=== PATIENT | female | born 1965 | race Caucasian/White ===

== ENCOUNTER 2019-06-17 16:33 | Emergency (ER) | payer MEDICAID, SELFPAY ==
[2019-06-17 16:34] VITALS: BP 159/99; PULSE 85; RESP 20; TEMP 36.8; O2SAT 95; BMI 36.8
--- NOTE | 2019-06-17 16:59 | ED.DCSUM_ITS ---
History of Present Illness Chief Complaint: Shortness of Breath Informant: Patient, Significant Other Onset: Weeks - 1 Context: Onset with activity - exertion Timing: Intermittent Quality: wheezing and chest tightness Location: chest Current Severity: Gone Maximum Severity: Mild Worsened by: - - Exertion, coughing Relieved by: - - Albuterol, rest Associated Symptoms: Nasal Congestion - and rhinorrhea, Headache, Shortness of Breath, Chest Pain - only tight when wheezing, Nonproductive cough. Negative for: Sinus Pressure, Nausea, Vomiting, Diarrhea, Hemoptysis Narrative: Patient states she feels like she has had a cold for the past week. [facility], as she has had some dyspnea on exertion for the past 3 or 4 days that resolves with a short period of rest, they took her vital signs and told her that her oxygen levels were low and she needed to come to the hospital for breathing treatment. According to the documentation that she was given a discharge her pulse ox was 94% on room air, she states she does not feel short of breath right now, she used her albuterol inhaler just before going to [facility] which has been helping her dyspnea. She has been having some chest tightness when she is dyspneic and wheezing, they resolved together with rest and the symptoms are mild. She denies any diaphoresis, radiation to her arms or jaw, near syncope or syncope, or palpitations. No swelling in her legs or orthopnea. She is a smoker and has been told she has borderline COPD. She has had no fevers. - Past Medical History (1) COPD (chronic obstructive pulmonary disease) Status: Chronic Past Medical History - Allergies and Home Meds Allergies/Adverse Reactions: Allergies No Known Allergies Allergy (Verified 06/17/19 16:34) Primary Care Physician: Tonny De La Cruz MD [Primary Care Provider] - Lives: Spouse/ Significant Other Smoking Status: Current every day smoker Review of Systems General: Denies: Chills, Fever, Sweats Eyes: Denies: Visual changes - bilaterally, Diplopia ENT: Reports: Rhinorrhea, Sore throat - mild. Denies: Bilateral ear pain Cardiovascular: Reports: Chest pain. Denies: Palpitations Respiratory: Reports: Cough, Dyspnea on exertion. Denies: Sputum, Orthopnea Gastrointestinal: Denies: Abdominal pain, Nausea, Vomiting, Diarrhea, Melena, Hematochezia Genitourinary: Denies: Dysuria, Hematuria, Frequency Musculoskeletal: Denies: Back pain, Swelling, Extremity Pain Skin: Denies: Rash, Wounds Neurological: Reports: Headache. Denies: Weakness, Numbness Physical Exam Vital Signs/Narrative: Vital Signs Temp Pulse Resp BP Pulse Ox 06/17/19 16:34 98.2 F 85 20 H 159/99 H 95 Inital Vital Signs reviewed: Yes General: Well nourished, Well developed Head: Normocephalic, Atraumatic. Negative for: Sinus Tenderness Eyes: Perrl, EOMI Ears: Normal external canal, TM's clear Nose: Normal Inspection, No Rhinorrhea. Negative for: Swollen Turbinates, Purulent Drainage Mouth/Throat: Normal Inspection, No Posterior Erythema, Airway Patent Neck: Supple, Nontender, No Lymphadenopathy Cardiovascular: Regular rate, Regular rhythm, No murmurs Respiratory: No distress, CTA bilaterally, Chest nontender Abdomen: Soft, Nontender, Nondistended, Normal bowel sounds Back: Nontender, Normal Inspection Extremities: Nontender, No edema. Negative for: Calf Tenderness Skin: Normal color, No rash, No Trauma Neurological: Alert, Oriented x3, Cranial nerves II-XII grossly intact, Normal Strength, Normal Sensation, Normal Gait Psychological: Normal affect, Normal Mood Diagnostic/Tx/Re-eval - Medical Decision Making Patient was offered a chest x-ray but she declines. I think it is reasonable to put her on a broad-spectrum antibiotic and a short course of prednisone, given her borderline COPD. I agree she probably has a viral syndrome. We did discuss the possibility of pneumonia and the reason for the chest x-ray, she states her cough is nonproductive and she declines it and states she would be happy to come back if worse. I think this is reasonable plan, I do not think her chest pain sounds like angina, it sounds pulmonary in nature. She does not take inhalers for maintenance, just has a rescue albuterol inhaler, she states it has been helping her dyspnea and chest tightness. Advised to follow-up with her doctor for reevaluation and to return to the ER if worse. She is comfortable with that plan. ED Disposition - Plan for ED Patient: Disposition: Home or Assisted Living Diagnosis: Acute bronchitis, COPD exacerbation Instructions: BRONCHITIS, Antiobiotic Treatment (Adult), Copd Flare Prescriptions: Prednisone [Deltasone] 40 mg PO DAILY #10 tab Transmission Status: Pending to [id number] Guaifenesin/Codeine [Robitussin AC] 10 ml PO Q6H PRN PRN #4 oz PRN Reason: Cough Transmission Status: Received by [id number] Azithromycin [Zithromax Z-Cuauhtemoc] 250 mg PO UD #1 box Transmission Status: Pending to [id number] Referrals: Tonny De La Cruz MD [Primary Care Provider] - 1 Week if not improving
[2019-06-17 17:03] VITALS: O2SAT 94
[2019-06-17] MEDS: predniSONE 20 MG Tablet 40 MG PO (17:20)
== END 2019-06-17 17:39 | disposition home or self-care (01) ==
PROVIDERS: Emergency Provider Emergency Medicine; Family Provider Family Medicine; PCP Family Medicine
DX: J44.0 Chronic obstructive pulmonary disease with (acute) lower respiratory infection (principal); J20.9 Acute bronchitis, unspecified; J44.1 Chronic obstructive pulmonary disease with (acute) exacerbation; F17.200 Nicotine dependence, unspecified, uncomplicated
CPT/HCPCS: 99283

== ENCOUNTER 2020-03-31 23:07 | Inpatient (IN) | payer MEDICAID, SELFPAY ==
[2020-03-31 23:07] VITALS: BP 138/85; PULSE 106; RESP 20; O2SAT 93
[2020-03-31 23:08] VITALS: BP 138/85; PULSE 97; RESP 23; TEMP 36.9; O2SAT 100; BMI 38.9
--- NOTE | 2020-03-31 23:24 | ED.DCSUM_ITS ---
History of Present Illness Chief Complaint: Abd Pain Informant: Patient Onset: Days Context: Gradual Onset Timing: Waxes and wanes Current Severity: Moderate Maximum Severity: Severe Narrative: Presents secondary abdominal pain, vomiting, and diarrhea. Symptoms started on the . She points to the epigastric area as well as the right lower quadrant and describing her area of pain. She does not believe she is had fever. She does report blood in her vomitus. She denies blood with her diarrhea. Only prior abdominal surgeries were for delivery of her children. - Past Medical History (1) Hypertension Status: Chronic (2) GERD (gastroesophageal reflux disease) Status: Chronic (3) Anxiety and depression Status: Chronic (4) COPD (chronic obstructive pulmonary disease) Status: Chronic Past Medical History - Allergies and Home Meds Allergies/Adverse Reactions: Allergies No Known Allergies Allergy (Verified 03/31/20 23:08) Primary Care Physician: Tonny De La Cruz MD [Primary Care Provider] - Prior records reviewed: Yes Smoking Status: Current every day smoker Review of Systems General: Denies: Chills, Fever Eyes: Denies: Visual changes - bilaterally ENT: Denies: Bilateral ear pain Cardiovascular: Denies: Chest pain Respiratory: Denies: Dyspnea Gastrointestinal: Reports: Abdominal pain, Nausea, Vomiting - Hematemesis, Diarrhea Musculoskeletal: Denies: Swelling, Extremity Pain Skin: Denies: Rash Neurological: Denies: Headache Hematologic: Denies: Easy bruising Allergy: Denies: Uticaria Physical Exam Vital Signs/Narrative: Vital Signs Temp Pulse Resp BP Pulse Ox 03/31/20 23:08 98.4 F 97 23 H 138/85 H 100 03/31/20 23:07 106 H 20 H 138/85 H 93 Inital Vital Signs reviewed: Yes General: Well nourished, Well developed Head: Normocephalic ENT: Moist mucous membranes Neck: Supple Cardiovascular: Regular rate, Regular rhythm Respiratory: No distress, CTA bilaterally Abdomen: Soft, Tender - Moderate diffuse tenderness to palpation., Hypoactive bowel sounds. Negative for: Guarding, Rebound tenderness Extremities: Nontender Skin: Normal color Neurological: Alert, Oriented x3 Psychological: - - Anxious Diagnostic/Tx/Re-eval Impressions Abdomen/Pelvis CT 04/01/20 00:00 IMPRESSION: 1. Dilated proximal appendix with periappendiceal mild inflammatory change suspicious for acute appendicitis. An associated proximal appendicolith may be present. 2. 3.2 cm submucosal fibroid at the uterine fundus and an adjacent small endometrial fluid collection may be present. 3. Mildly enlarged fatty liver. Individualized dose optimization techniques were used for this CT. at 0052 Reported and signed by: Donnie Meeks MD Electronically Signed: Donnie Meeks, at 0:58 EDT Tel , Service support , ADDENDUM: 04/01/20 0108 IMPRESSION: 1. Dilated proximal appendix with periappendiceal mild inflammatory change suspicious for acute appendicitis. An associated proximal appendicolith may be present. 2. 3.2 cm submucosal fibroid at the uterine fundus and an adjacent small endometrial fluid collection may be present. 3. Mildly enlarged fatty liver. Individualized dose optimization techniques were used for this CT. at 0055 Reported and signed by: Donnie Meeks MD N.B. : The above information has been verbally conveyed by Donnie Meeks to Dr. Marlen Murry MD, on 04/01/2020 01:01:52 (ET). Electronically Signed: Donnie Meeks, at 0:58 EDT Tel , Service support , 04/01/20 00:00 Abdomen/Pelvis W IV Cont ONLY [CT] Stat Laboratory Results 03/31/20 03/31/20 23:30 23:30 WBC 18.2 H RBC 5.27 Hgb 15.5 H Hct 46.7 MCV 88.6 MCH 29.4 MCHC 33.2 RDW Std Deviation 43.9 RDW Coeff of Seven 13.6 Plt Count 266 MPV 9.7 Immature Gran % (Auto) 0.400 Neut % (Auto) 83.5 H Lymph % (Auto) 11.2 L [place] % (Auto) 4.5 Eos % (Auto) 0.2 Baso % (Auto) 0.2 Absolute Neuts (auto) 15.2 H Absolute Lymphs (auto) 2.04 Nucleated RBC % 0 Sodium 138 Potassium 3.0 L Chloride 102 Carbon Dioxide 30.0 Anion Gap 6 BUN 33 H Creatinine 0.98 Estim Creat Clear Calc 53.02 Est GFR (MDRD) Af Amer 75 Est GFR (MDRD) Non-Af 62 BUN/Creatinine Ratio 33.7 H Glucose 138 H Calcium 9.2 Total Bilirubin 0.60 Direct Bilirubin 0.25 AST 38 H ALT 75 H Alkaline Phosphatase 102 Total Protein 8.3 H Albumin 3.7 Globulin 4.6 H Lipase 91 - Medical Decision Making Patient was initially given morphine, Zofran, and a dose of IV Protonix. When her potassium returned low she was ordered IV potassium replacement. I went back to reevaluate the patient after CT was performed. She states that she had been resting comfortably however her pain has now recurred. She is given a dose of Dilaudid and Zofran. Test results are discussed with her. She denies seeing any prior surgeons in this area. I spoke with Dr. Daley, on-call for no doc surgery. She asked that the patient be given a dose of Zosyn and get an EKG. Orders were given to a nurse for admission. ED Disposition - Plan for ED Patient: Disposition: [facility] Diagnosis: Appendicitis Referrals: Tonny De La rCuz MD [Primary Care Provider] -
[2020-03-31] MEDS: Morphine 4 MG/ML Syringe IV (23:27)
[2020-03-31] MEDS: Ondansetron 4 MG/2 ML Vial IV (23:27)
[2020-03-31 23:49] LABS: Absolute Lymphocyte Count 2.04 X10^3/uL (0.83-4.51); Absolute Neutrophil Count 15.2 X10^3/uL (2.0-7.7); Basophil# 0.03 X10^3/uL; Basophil% 0.2 % (0-1); Eosinophil# 0.03 X10^3/uL; Eosinophils% 0.2 % (0-5); Hematocrit 46.7 % (37-47); Hemoglobin 15.5 g/dL (12.0-15.0); Lymphocyte # 2.04 X10^3/ul (4.0); Lymphocyte % 11.2 % (19-41); Mean Corp Hgb Conc 33.2 g/dL (32-36); Mean Corpuscular Hgb 29.4 pg (27.0-32.0); Mean Corpuscular Volume 88.6 fL (81-99); Mean Platelet Vol. 9.7 fl (6.2-12.0); Monocyte# 0.81 X10^3/uL; Monocyte% 4.5 % (0-10); NRBC Flagged by Analyzer 0 % (0-5); Neutrophil # 15.18 X10^3/uL (2.7-7.7); Neutrophil % 83.5 % (47-70); Platelet Count 266 K/mm3 (150-450); RBC Distribution Width CV 13.6 % (11.6-14.6); RBC Distribution Width SD 43.9 fl (35.1-43.9); Red Blood Count 5.27 M/mm3 (4.2-5.4); White Blood Count 18.2 K/mm3 (4.4-11.0)
[2020-03-31 23:55] LABS: AST(SGOT) 38 U/L (15-37); Alanine Aminotransfer ALT/SGPT 75 U/L (13-56); Albumin, Serum 3.7 g/dL (3.2-5.0); Alkaline Phosphatase 102 U/L (45-117); Anion Gap 6 (5-15); BUN 33 mg/dL (7-18); BUN/Creat Ratio 33.7 RATIO (10-20); Bilirubin, Direct 0.25 mg/dL (0.00-0.30); Calcium,Total 9.2 mg/dL (8.5-10.1); Chloride 102 mmol/L (98-107); Creatinine, Serum 0.98 mg/dL (0.55-1.02); EST Glomerular Filtration Rate 62 mL/min (>60); Est Glom Filt Rate - Afr Amer 75 mL/min (>60); Estimated Creatinine Clearance 53.02 ml/min; Globulin 4.6 g/dL (2.2-4.2); Glucose 138 mg/dL (74-106); Lipase 91 U/L (73-393); Protein, Total 8.3 g/dL (6.4-8.2); Sodium Level 138 mmol/L (136-145)
[2020-04-01] VITALS (17 sets, daily range): BP systolic 126–159; BP diastolic 79–101; PULSE 91–109; RESP 16–30; TEMP 36.5–38.1; O2SAT 86–97; BMI 38.9
--- NOTE | 2020-04-01 | CT_ITS ---
We are attempting to reach an attending provider to discuss findings. An addendum with communication details will be sent when the communication is complete. HISTORY: GENERALIZED ABD PAIN EXAMINATION: CT Abdomen And Pelvis W/O Contrast Injection TECHNIQUE: Helically acquired images were obtained of the abdomen and pelvis following IV contrast. A radiation dose optimization technique was used for this scan. IV Contrast dosage and agent: 100mL Isovue-370 contrast Oral contrast: None. COMPARISON: None FINDINGS: Lower thorax: Mild dependent atelectasis, not unusual. No pleural effusion or pericardial effusion. No radiopaque gallstones and no biliary dilatation. Fatty liver which is mildly enlarged. The spleen is upper normal in size. Normal pancreas. Normal bilateral kidneys. No hydronephrosis or pyelonephritis. The adrenal glands are not enlarged. Normal abdominal aorta and IVC. No retroperitoneal lymph node enlargement. Appendix: Dilated proximal appendix measuring up to 1.4 cm in diameter with periappendiceal mild inflammatory change with fat streaking suspicious for appendicitis. Possible 0.8 cm proximal appendicolith. No abscess, free fluid, or appendiceal rupture identified. GI tract: No obstruction. Small radiopaque material within the right colon. Pelvis: No free fluid or lymph node enlargement. Poor distention of the urinary bladder. Anteverted uterus which shows a 2.8 x 3.2 cm hypoechoic submucosal lesion at the fundus compatible with a fibroid. Possible adjacent small fluid collection within the fundal endometrial cavity. Bones: No acute osseous abnormality. CT/Abdomen/Pelvis W IV Cont ONLY IMPRESSION: 1. Dilated proximal appendix with periappendiceal mild inflammatory change suspicious for acute appendicitis. An associated proximal appendicolith may be present. 2. 3.2 cm submucosal fibroid at the uterine fundus and an adjacent small endometrial fluid collection may be present. 3. Mildly enlarged fatty liver. Individualized dose optimization techniques were used for this CT. at 0059 Reported and signed by: Donnie Meeks MD Electronically Signed: Donnie Meeks, at 0:58 EDT Tel , Service support ,
[2020-04-01] MEDS: 0.9% Normal Saline 1,000 ML 150 ML IV ×2 (00:29→03:15)
[2020-04-01] MEDS: Potassium Chloride 10mEq/100mL 10 MEQ/100 ML IV.SOLN. 100 MEQ IV BOLUS ×4 (00:42→03:45)
--- NOTE | 2020-04-01 01:13 | EKG12_ITS ---
Test Reason : ABDOMINAL PAIN Blood Pressure : / mmHG Vent. Rate : 097 BPM Atrial Rate : 097 BPM P-R Int : 124 ms QRS Dur : 096 ms QT Int : 366 ms P-R-T Axes : 070 060 050 degrees QTc Int : 464 ms Normal sinus rhythm Normal ECG Confirmed by GERARDO CORTES, LAUREN ([id number]), assignment editor SHRUTI CORONEL ([id number]) on 04/04/2020 11:23:06 AM Referred By: MARTY Confirmed By:LAUREN CARRILLO MD
[2020-04-01] MEDS: HYDROmorphone 0.5 MG/0.5 ML SYRINGE IV (01:17)
[2020-04-01] MEDS: Ondansetron 4 MG/2 ML Vial IV (01:17)
[2020-04-01] MEDS: 0.9% Saline Lock 10 ML Syringe IV ×6 (03:19→23:28)
[2020-04-01] MEDS: Morphine 4 MG/ML Syringe IV ×5 (05:06→18:08)
[2020-04-01] MEDS: Lactated Ringers 1,000 ML 125 ML IV ×2 (05:13→09:41)
--- NOTE | 2020-04-01 05:44 | PCM.HP.BLA ---
History and Physical Date of Admission: 04/01/20 Chief Complaint: abdominal pain History of Present Illness: 54 y/o WF presents with abdominal pain in the right lower quadrant since Wednesday. Has associated symptoms of nausea and emesis. Denies fevers. Presented to [facility] ED. Evaluation revealed the following - WBC is 18.2K with left shift of differential CT scan - Appendix: Dilated proximal appendix measuring up to 1.4 cm in diameter with periappendiceal mild inflammatory change with fat streaking suspicious for appendicitis. Possible 0.8 cm proximal appendicolith. No abscess, free fluid, or appendiceal rupture identified. PAST MEDICAL HISTORY ? Dysmenorrhea ? ? Excessive or frequent menstruation ? ? resolved ? History of TMJ disorder ? ? Hypertension PAST SURGICAL HISTORY ? BREAST BIOPSY W/STEREOTACTIC GUIDANCE Left 08-19-15 ? benign ? DELIVERY ONLY ? 1977, 1980, 1981 ? , low transverse x3 ? COLONOSCOPY ? 09/2013 ? EGD ? 09/2013 ? LIGATE FALLOPIAN TUBE ? ? ? Tubal ligation ? REMOVE TONSILS/ADENOIDS,<12 Y/O ? ? ? REVISE MEDIAN N/CARPAL TUNNEL SURG Left ? ? and Tendon repair ? UNSPECIFIED ORAL SURGERY PROCEDURE, BY REPORT ? ? ? extensive dental work MEDICATIONS ? lisinopril-hydrochlorothiazide (PRINZIDE,ZESTORETIC) 20-12.5 mg per tablet Take 2 tablets by mouth once daily. ? albuterol HFA (VENTOLIN HFA) 90 mcg/actuation inhaler Inhale 2 Puffs as instructed every 6 hours as needed for Wheezing/Shortness of Breath. ? buPROPion SR (ZYBAN SR; WELLBUTRIN SR) 150 mg 12 hr tablet TAKE 1 TABLET BY MOUTH TWICE A DAY ? fluticasone (FLONASE) 50 mcg/actuation nasal spray USE 2 SPRAYS IN EACH NOSTRIL ONCE DAILY. RINSE MOUTH AFTER USE. ? NEXIUM 24HR 20 mg capsule Take 1 capsule by mouth twice daily. ? benzonatate (TESSALON PERLES) 100 mg capsule Take 1 capsule by mouth three times daily as needed for Cough. ? meloxicam (MOBIC) 15 mg tablet TAKE 1 TABLET BY MOUTH ONCE DAILY. TAKE WITH FOOD. ? hydrocortisone (ANUSOL-HC) 2.5 % rectal cream 1 Applicator by RECTAL route twice daily. ? Nicotine Polacrilex [address] 4 mg between cheek and gum as needed. ? TURMERIC-TURMERIC ROOT EXTRACT ORAL Take 1 tablet by mouth twice daily. ? MULTIVITAMIN/IRON/FOLIC ACID (MULTI-XAVIER ORAL) Take 1 tablet by mouth. ? Psyllium Seed-Sucrose (METAMUCIL) powd Take 1 Tablespoonful by mouth once daily. ALLERGIES Has no known drug allergies Social history: TOB use positive Review of Systems: General - denies fevers, denies weight loss, denies anorexia Cardiovascular has hypertension, denies chest pain, denies history of heart attack Pulmonary TOB use - denies shortness of breath, denies coughing up blood Gastrointestinal as per HPI Neurological denies numbness/weakness of extremities, denies seizures, denies history of stroke Genitourinary denies burning with urination, denies blood in urine Hematological denies spontaneous/prolonged bleeding Skin has had skin lesion, has had recent cellulitis Musculoskeletal has had fractures, has arthritis Endocrine is obese, denies diabetes Psychological denies hallucinations Physical examination: Vital signs Temp 97.7F HR 91 RR 16 BP 147/94 BMI 38 General WD/WN WF in no apparent distress, alert and oriented, not septic appearing HEENT Normocephalic. EOM intact with sclera clear and no icterus noted. Neck is supple with no jugular venous distention noted. Trachea is midline. Lungs normal breath sounds. No rales/rhonchi/wheezing noted. No labored breathing noted, such as retractions. No cough heard. Heart normal heart sounds - regular Abdomen soft and obese but tender in right lower quadrant with rebound, hypoactive bowel sounds. Difficult to determine if any masses due to body habitus Extremities no calf tenderness or swelling noted. No pitting edema noted. No obvious deformity noted. Genitourinary/Rectal deferred Skin normal skin integrity. Neurological non focal. Psychological normal affect, patient is calm and appropriate Impression: appendicitis right lower quadrant abdominal pain leukocytosis BMI 38 Discussion/Plan: I have discussed the above with the patient. The patient has diagnosis of appendicitis. I have offered the patient the procedure of laparoscopic appendectomy, possible open. I have explained the procedure to the patient. I have counseled the patient as to the risks of the procedure, including but not limited to: infection, bleeding, injury to any blood vessels/nerves, scar tissue, injury to any intrabdominal organs, injury to kidney/ureters, injury to bowel/bladder, intraabdominal abscess/bleeding, hernias at incisional sites, wound infections, possible open procedure, complications of anesthesia, postoperative pneumonia/cardiac problems/blood clots etc. the patient understands. Also given the present COVID crisis, patient has increased risk to having COVID and/or its complications, she understands. She wishes to proceed. I have answered all questions to the patient?s satisfaction and the patient has no further questions.
[2020-04-01 05:47] LABS: Anion Gap 4 (5-15); BUN 25 mg/dL (7-18); BUN/Creat Ratio 25.6 RATIO (10-20); Calcium,Total 7.9 mg/dL (8.5-10.1); Chloride 105 mmol/L (98-107); Creatinine, Serum 0.98 mg/dL (0.55-1.02); EST Glomerular Filtration Rate 63 mL/min (>60); Est Glom Filt Rate - Afr Amer 76 mL/min (>60); Estimated Creatinine Clearance 53.02 ml/min; Glucose 126 mg/dL (74-106); Potassium 3.5 mmol/L (3.5-5.1); Sodium Level 139 mmol/L (136-145)
--- NOTE | 2020-04-01 06:00 | NURSING ---
REPORT GIVEN TO NURSE NANCY FOR OR. NOTIFIED HER THAT PT REQUESTS HER FIANCE BE UPDATED AFTER OR BY DR ROCHE HIS NUMBER IS ON FRONT OF CHART.
--- NOTE | 2020-04-01 06:11 | NURSING ---
PT FIANCE/BAKED AND GRAPHITE INSPECTOR STEPHANE BERNSTEIN NOTFIED THAT PT LEFT FLOOR FOR OR PER PT REQUEST
--- NOTE | 2020-04-01 06:15 | APP_PTH ---
PATIENT: KIANA JORGE LOC: MS3 U#:[id number] AGE/SX: 54/F ROOM: TN324 RE04/01/[address]: Dr. Susannah Phillips MD : [id number] BED: 1 DIS: 04/04/2020 SPEC #: [id number] RECD: 04/01/20 09:28 STATUS: JAVAD CARLOS #: [id number] BLANQUITA: 04/01/20 06:[address]: Claudia Daley DEPT: SURGICAL PATHOLOGY RECD BY: Tiburcio Ryan ENTERED: 04/01/20 10:46 SP TYPE: APPENDIX OTHR DR: Dr. Tonny De La Cruz MD Tissues: Appendix, NOS Procedures: Surgery Specimen Level III HEADER OPERATION: Laparoscopic appendectomy PRE-OP DIAGNOSIS: Appendicitis TISSUE SUBMITTED: Appendix MICROSCOPIC DIAGNOSIS Appendix, appendectomy: Acute necrotizing appendicitis. Acute serositis. AM:rhona 04/02/20 MICROSCOPIC DESCRIPTION Slides are reviewed. GROSS DESCRIPTION Received is one container labeled with the patient's name and designated appendix. The specimen consists of an appendix measuring 5.5 cm in length and up to 1 cm in diameter. The attached periappendiceal adipose tissue measures up to 0.5 cm in width. The serosa is congested. No obvious perforation is identified. The lumen contains hemorrhagic fluid. No fecalith is identified. Baseball Sewer Hand sections are submitted in one cassette. / SJ:rhona 04/01/20 TC:2 CPT: 15185
[2020-04-01] MEDS: Bupiv/Epi 0.25% 30 ML Vial (06:48)
--- NOTE | 2020-04-01 07:42 | PCM.OPRPT ---
Report of Operation Date of Procedure: 04/01/20 Pre-Operative Diagnosis: appendicitis Post-Operative Diagnosis: perforated appendicitis Surgery/Procedure Performed:: laparoscopic appendectomy, placement of intraabdominal drain Description of Surgical Findings:: peforated appendix with phlegmon, fecal material in intraabdominal cavity Type of Anesthesia:: General Anesthesiologist: Vikash Pichardo Specimen's removed: appendix Estimated Blood Loss (mL): < 10 ml Fluids Replaced: 1000 ml RL Description of Procedure: After informed consent was obtained, the patient was brought into the Operating Room. Appropriate time out protocol was followed. The patient was placed in the supine position on the operating table. The patient was then placed under general anesthesia by the anesthesia provider. The patient?s abdomen was then prepped with a sterile surgical skin preparation and sterile surgical drapes were placed. The infraumbilical skin fold was grasped with penetrating towel clamps and the skin and subcutaneous tissues were infiltrated with 0.25% marcaine with epinephrine. A incision was then made with a 15 blade scalpel. A Veress needle was then inserted into the intraabdominal cavity and checked to be in the proper position with a normal saline drop test. A CO2 pneumoperitoneum was then created. Once this was achieved, the Veress needle was removed and an 11 mm trocar was placed in its stead. A 10 mm laparoscope was then inserted into the trocar. Careful examination of the intraabdominal contents was then done. There was no evidence of injury to any internal organs from placement of the Veress needle or the trocar. Under direct visualization, a 12mm suprapubic trocar and a 5mm left lower quadrant trocar was then placed into the intraabdominal cavity. The skin and subcutaneous tissues at these sites were first infiltrated with 0.25% marcaine with epinephrine. Attention was then directed to the right lower quadrant. The base of the appendix was visualized. It appeared enlarged/edematous/injected/with surrounding inflammation. There was an area of perforation, just distal to the fecalith with gross fecal material emanating from it. There was a large amount of inflammatory changes of the surrounding fatty tissues. The appendix was very friable and fragmented due to the inflammation. The mesentery of the appendix was taken down by cauterizing the tissue from the free edge to the base of the appendix using the Harmonic scalpel. Once the base of the appendix was freed of surrounding tissues, then the linear gastrointestinal stapling device was brought into the abdominal cavity via the 12mm port and placed across the base of the appendix. The stapling device was fired, thus stapling across the base of the appendix and transecting it simultaneously. It required another firing as the cecum in this area was indurated. The appendix was then placed in an Endobag and brought out via the suprapubic port. The pelvic cavity was vigorously irrigated with normal saline and all irrigant was aspirated out. The appendiceal stump was carefully examined. There was no evidence of any active bleeding or fecal leakage. The surrounding tissues were also examined and there was no evidence of any active bleeding or fecal/bile leakage. The intraabdominal cavity was examined and there was no evidence of any further inflammation or tissue abnormality. A 15 Fr round passive drain was brought into the intraabdominal cavity and the tip was placed in the pelvis with the mid loop placed in the right lower quadrant. The CO2 pneumoperitoneum was released and all trocars were removed intact. The suprapubic fascia was reapproximated with a figure-of-8 vicryl suture. The catheter was sutured to the skin using nylon suture. All skin incisions were reapproximated with monocryl suture. Cavilon and steristrips were applied to reinforce skin closure and proper sterile dressings were placed. Sponge, needle, and instrument count were verified and correct at the time of skin closure. The patient was then extubated and brought to the Recovery Room in stable condition. Grafts/Implants Used: 15 Fr round passive drain - Complications none noted - Admit VTE Documentation VTE Present on Admission: Yes VTE Mechan Device Prophylaxis: SCD's
[2020-04-01] MEDS: Ipratropium/Albuterol Sulfate 3 ML AMPUL.NEB INHALATION (08:00)
--- NOTE | 2020-04-01 10:35 | CASEMGMT ---
RN SHAHEED Face to Face with patient for initial transition planning/care coordination assessment. RN CM introduced self and role at [facility]. Patient lying in bed, somewhat drowsy and oriented. Patient willing to participate in assessment and is able to answer all questions appropriately. Care providers, pharmacy, and demographics verified. Patient wishes to discharge home, denies need for home health at this time. Patient states she has no further needs or concerns at this time. CM to follow for discharge planning needs that may arise. PCP: Dorothy Specialists: none Preferred Pharmacy: [facility] Insurance: [facility] Prescription Benefit: yes Living Will/HPOA: none LNOK: fiance Living Arrangements: Patient lives with estrella in a 2story home with bed and bath on main level. Patient states she is independent at home Transportation: self, fiance DME/HHC: Patient states she has a walker, denied further DME. No previous HHC. Patient currently on oxygen, will monitor for need for home oxygen. Disposition Plan: Patient to discharge home with family support and follow-up plans in place. Ilda BOOGIE, RN, CM
[2020-04-01] MEDS: Fluticasone 0.05% 1 SPRAY NASAL.SRY NASAL (11:59)
[2020-04-01] MEDS: Lisinopril 20 MG Tablet 40 MG PO (12:00)
[2020-04-01] MEDS: hydroCHLOROthiazide 12.5mg 25 MG PO (12:00)
[2020-04-01] MEDS: Pantoprazole Sodium 20 MG Tablet PO (12:00)
[2020-04-01] MEDS: buPROPion (SR) 150 MG Tablet.SA PO (12:00)
[2020-04-01] MEDS: 0.9% Normal Saline 1,000 ML 125 ML IV ×2 (13:09→20:33)
[2020-04-01] MEDS: HYDROcodone Bitartrate/Apap 5/325 Tablet PO (13:10)
[2020-04-01] MEDS: Acetaminophen 325 MG Tablet 650 MG PO (16:50)
[2020-04-01] MEDS: Ketorolac 15 MG/ML Vial IV (23:29)
[2020-04-02] VITALS (12 sets, daily range): BP systolic 101–156; BP diastolic 61–102; PULSE 90–108; RESP 18–20; TEMP 36.7–37.6; O2SAT 84–96
[2020-04-02] MEDS: HYDROcodone Bitartrate/Apap 5/325 Tablet PO ×5 (02:33→23:52)
[2020-04-02] MEDS: 0.9% Normal Saline 1,000 ML 125 ML IV ×3 (04:28→19:28)
[2020-04-02] MEDS: 0.9% Saline Lock 10 ML Syringe IV (06:00)
[2020-04-02] MEDS: Ketorolac 15 MG/ML Vial IV ×3 (06:02→21:01)
[2020-04-02 06:05] LABS: Absolute Lymphocyte Count 1.55 X10^3/uL (0.83-4.51); Absolute Neutrophil Count 7.6 X10^3/uL (2.0-7.7); Basophil# 0.01 X10^3/uL; Basophil% 0.1 % (0-1); Eosinophil# 0.06 X10^3/uL; Eosinophils% 0.6 % (0-5); Hematocrit 38.7 % (37-47); Hemoglobin 12.1 g/dL (12.0-15.0); Lymphocyte # 1.55 X10^3/ul (4.0); Lymphocyte % 15.6 % (19-41); Mean Corp Hgb Conc 31.3 g/dL (32-36); Mean Corpuscular Hgb 28.9 pg (27.0-32.0); Mean Corpuscular Volume 92.4 fL (81-99); Mean Platelet Vol. 9.4 fl (6.2-12.0); Monocyte# 0.61 X10^3/uL; Monocyte% 6.2 % (0-10); NRBC Flagged by Analyzer 0 % (0-5); Neutrophil # 7.64 X10^3/uL (2.7-7.7); Neutrophil % 77.1 % (47-70); Platelet Count 187 K/mm3 (150-450); RBC Distribution Width CV 14.3 % (11.6-14.6); RBC Distribution Width SD 48.4 fl (35.1-43.9); Red Blood Count 4.19 M/mm3 (4.2-5.4); White Blood Count 9.9 K/mm3 (4.4-11.0)
[2020-04-02] MEDS: Fluticasone 0.05% 1 SPRAY NASAL.SRY NASAL (08:24)
[2020-04-02] MEDS: buPROPion (SR) 150 MG Tablet.SA PO (08:25)
[2020-04-02] MEDS: Pantoprazole Sodium 20 MG Tablet PO (08:25)
[2020-04-02] MEDS: Lisinopril 20 MG Tablet 40 MG PO (08:25)
[2020-04-02] MEDS: hydroCHLOROthiazide 12.5mg 25 MG PO (08:25)
--- NOTE | 2020-04-02 11:40 | PCM.PN.SRG ---
Patient Problems: Active and Suspected Problems Appendicitis (Acute) Subjective: Patient is feeling improved, had not ambulated or moved much yesterday, but increasing physical activity today - no BM - Physical Exam Vitals/I&O's: Vital Signs Temp Pulse Resp BP Pulse Ox 98.2 F 108 H 20 H 151/99 H 95 04/02/20 11:39 04/02/20 08:20 04/02/20 08:20 04/02/20 08:20 04/02/20 08:20 Oxygen Flow Rate (L/min) 4 Oxygen Delivery Method Nasal Cannula Weight: 99.6 kg Body Mass Index (BMI) 38.9 Intake and Output for Last 24 Hours 03/31/20 04/01/20 04/02/20 23:59 23:59 23:59 Intake Total 4481.83 / 4481.83 2220.25 / 2220.25 Output Total 1665 / 1665 820 / 820 Balance 2816.83 / 2816.83 1400.25 / 1400.25 General: Alert, Oriented x3 HEENT: Atraumatic Oral: Moist Mucosa Neck: Supple Lungs: Normal air movement Abdomen: Soft, Obese, - - dressings intact, no seepage noted, KATIE output is serosanguinous and clear Laboratory Results 04/02/20 05:43: WBC 9.9, RBC 4.19 L, Hgb 12.1, Hct 38.7, MCV 92.4, MCH 28.9, MCHC 31.3 L D, RDW Std Deviation 48.4 H, RDW Coeff of Seven 14.3, Plt Count 187, MPV 9.4, Immature Gran % (Auto) 0.400, Neut % (Auto) 77.1 H, Lymph % (Auto) 15.6 L, Leslie % (Auto) 6.2, Eos % (Auto) 0.6, Baso % (Auto) 0.1, Absolute Neuts (auto) 7.6, Absolute Lymphs (auto) 1.55, Nucleated RBC % 0 Current Medications Acetaminophen (Tylenol) 650 mg PO Q4H PRN PRN PRN Reason: Pain 1-10 Or Fever >100.0 Last Admin: 04/01/20 16:50 Dose: 650 mg Documented by: Hydrocodone Bitart/Acetaminophen ([place] 5mg-325mg) 1 tablet PO Q4H PRN PRN PRN Reason: Pain Score 1-5/10 Last Admin: 04/02/20 08:30 Dose: 1 tablet Documented by: Albuterol Sulfate (Ventolin Aerosols) 2.5 mg INHALATION BID PRN PRN Reason: SOB &/OR WHEEZING Bupropion HCl (Wellbutrin Sr (150mg Tablets)) 150 mg PO DAILY [facility] Last Admin: 04/02/20 08:25 Dose: 150 mg Documented by: Fluticasone Propionate (Flonase Nasal [place]) 1 spray NASAL DAILY [facility] Last Admin: 04/02/20 08:24 Dose: 1 spray Documented by: Hydrochlorothiazide () 25 mg PO DAILY [facility] Last Admin: 04/02/20 08:25 Dose: 25 mg Documented by: Sodium Chloride () 250 mls @ 15 mls/hr IV .[id number] PRN PRN Reason: Saline Flush Last Infusion: 04/02/20 10:04 Dose: 15 mls/hr Documented by: Sodium Chloride () 250 mls @ 15 mls/hr IV .[id number] PRN PRN Reason: Additional IVPB Infusion Sodium Chloride () 250 mls @ 15 mls/hr IV .[id number] PRN PRN Reason: Saline Flush Piperacillin Sod/Tazobactam (Sod 3.375 gm/ Sodium Chloride) 50 mls @ 12.5 mls/hr IV Q8 [facility] Last Infusion: 04/02/20 10:04 Dose: Infused Documented by: Sodium Chloride () 1,000 mls @ 125 mls/hr IV .Q8H [facility] Last Admin: 04/02/20 11:36 Dose: 125 mls/hr Documented by: Ketorolac Tromethamine (Toradol (Bkc)) 15 mg IV Q8 [facility] Stop: 04/06/20 16:29 Last Admin: 04/02/20 06:02 Dose: 15 mg Documented by: Lisinopril (Zestril) 40 mg PO DAILY [facility] Last Admin: 04/02/20 08:25 Dose: 40 mg Documented by: Morphine Sulfate () 4 mg IV Q1H PRN PRN PRN Reason: Pain Score 6-10/10 Last Admin: 04/01/20 18:08 Dose: 4 mg Documented by: Ondansetron HCl (Zofran) 4 mg IV Q8H PRN PRN PRN Reason: NAUSEA Pantoprazole Sodium (Protonix) 20 mg PO DAILY [facility] Last Admin: 04/02/20 08:25 Dose: 20 mg Documented by: Sodium Chloride () 10 - 40 ml IV UD PRN PRN Reason: SALINE FLUSH Last Admin: 04/02/20 06:00 Dose: 10 ml Documented by: Medical Necessity - Tobacco Use Smoking Status: Current every day smoker Tobacco Use: Cigarettes Assessment/Plan All Active Problems Appendicitis (Acute) POD#1 s/p laparoscopic appendectomy with perforated appendicitis Discussion/Plan: I have encouraged patient to ambulate and use incentive spirometry she is obese and is a TOB user which complicates her recovery I had spoken to patient's fiance after surgery and he initially wanted patient to come home after one night because she was to help in baby sitting their grandchildren, however, I told him that she will need to stay in the hospital for as long as it requires her to recover from her illness, he sounded reluctant on the phone regarding this yesterday. However, today, in person, I have explained the situation to him and he is much more agreeable for patient staying in the hospital. Patient appears to be moving around much more today than yesterday Will continue IV antibiotics and keep patient in hospital overnight and reassess tomorrow
[2020-04-03] VITALS (9 sets, daily range): BP systolic 138–159; BP diastolic 79–96; PULSE 86–101; RESP 18–22; TEMP 36.2–37.1; O2SAT 92–96
[2020-04-03] MEDS: Morphine 4 MG/ML Syringe IV (02:35)
[2020-04-03] MEDS: 0.9% Normal Saline 1,000 ML 125 ML IV ×2 (03:28→10:43)
[2020-04-03] MEDS: Ketorolac 15 MG/ML Vial IV ×3 (06:30→22:40)
--- NOTE | 2020-04-03 08:53 | PN.SURG_ITS ---
Patient Problems: Active and Suspected Problems Appendicitis (Acute) Subjective: Alecia states that she has less abdominal pain, had required supplemental oxygen overnight to sleep better (has probable COPD/sleep apnea and known TOB abuse) - Physical Exam Vitals/I&O's: Vital Signs Temp Pulse Resp BP Pulse Ox 98.8 F 95 18 159/91 H 94 04/03/20 04:23 04/03/20 04:23 04/03/20 04:23 04/03/20 04:23 04/03/20 07:30 Oxygen Flow Rate (L/min) 4 Oxygen Delivery Method Nasal Cannula Weight: 99.6 kg Body Mass Index (BMI) 38.9 Intake and Output for Last 24 Hours 04/01/20 04/02/20 04/03/20 23:59 23:59 23:59 Intake Total 4481.83 / 4481.83 4169.58 / 4169.58 1600 / 1600 Output Total 1665 / 1665 1540 / 1540 1030 / 1030 Balance 2816.83 / 2816.83 2629.58 / 2629.58 570 / 570 General: Alert, Oriented x3 Oral: Moist Mucosa Neck: Supple Lungs: Normal air movement Abdomen: Bowel Sounds Present, Soft, Obese, - - KATIE output is serosanguinous - not cloudy Current Medications Acetaminophen (Tylenol) 650 mg PO Q4H PRN PRN PRN Reason: Pain 1-10 Or Fever >100.0 Last Admin: 04/01/20 16:50 Dose: 650 mg Documented by: Hydrocodone Bitart/Acetaminophen ([place] 5mg-325mg) 1 tablet PO Q4H PRN PRN PRN Reason: Pain Score 1-5/10 Last Admin: 04/02/20 23:52 Dose: 1 tablet Documented by: Albuterol Sulfate (Ventolin Aerosols) 2.5 mg INHALATION BID PRN PRN Reason: SOB &/OR WHEEZING Bupropion HCl (Wellbutrin Sr (150mg Tablets)) 150 mg PO DAILY [facility] Last Admin: 04/02/20 08:25 Dose: 150 mg Documented by: Fluticasone Propionate (Flonase Nasal [place]) 1 spray NASAL DAILY [facility] Last Admin: 04/02/20 08:24 Dose: 1 spray Documented by: Hydrochlorothiazide () 25 mg PO DAILY [facility] Last Admin: 04/02/20 08:25 Dose: 25 mg Documented by: Sodium Chloride () 250 mls @ 15 mls/hr IV .[id number] PRN PRN Reason: Saline Flush Last Admin: 04/03/20 02:36 Dose: 15 mls/hr Documented by: Sodium Chloride () 250 mls @ 15 mls/hr IV .[id number] PRN PRN Reason: Additional IVPB Infusion Sodium Chloride () 250 mls @ 15 mls/hr IV .[id number] PRN PRN Reason: Saline Flush Piperacillin Sod/Tazobactam (Sod 3.375 gm/ Sodium Chloride) 50 mls @ 12.5 mls/hr IV Q8 [facility] Last Admin: 04/03/20 06:30 Dose: 12.5 mls/hr Documented by: Sodium Chloride () 1,000 mls @ 125 mls/hr IV .Q8H [facility] Last Admin: 04/03/20 03:28 Dose: 125 mls/hr Documented by: Ketorolac Tromethamine (Toradol (Bkc)) 15 mg IV Q8 [facility] Stop: 04/06/20 16:29 Last Admin: 04/03/20 06:30 Dose: 15 mg Documented by: Lisinopril (Zestril) 40 mg PO DAILY [facility] Last Admin: 04/02/20 08:25 Dose: 40 mg Documented by: Morphine Sulfate () 4 mg IV Q1H PRN PRN PRN Reason: Pain Score 6-10/10 Last Admin: 04/03/20 02:35 Dose: 4 mg Documented by: Ondansetron HCl (Zofran) 4 mg IV Q8H PRN PRN PRN Reason: NAUSEA Pantoprazole Sodium (Protonix) 20 mg PO DAILY [facility] Last Admin: 04/02/20 08:25 Dose: 20 mg Documented by: Sodium Chloride () 10 - 40 ml IV UD PRN PRN Reason: SALINE FLUSH Last Admin: 04/02/20 06:00 Dose: 10 ml Documented by: Medical Necessity - Tobacco Use Smoking Status: Current every day smoker Tobacco Use: Cigarettes Assessment/Plan All Active Problems Appendicitis (Acute) POD#2 s/p laparoscopic appendectomy with perforated appendicitis Discussion/Plan: I have encouraged patient to ambulate and use incentive spirometry - she probably has undiagnosed sleep apnea and in my opinion has undertreated COPD She is obese and is a TOB user which complicates her recovery Her WBC has normalized and she has remained afebrile, my main concern is her overall medical condition and her multiple medical morbidities Will reassess for later today, to determine if patient is ready to be discharge, if still with pulmonary issues that preclude patient's discharge (oxygen sat at 94% on supplemental oxygen NC) - may consider consultation to internal medicine
[2020-04-03] MEDS: Fluticasone 0.05% 1 SPRAY NASAL.SRY NASAL (10:38)
[2020-04-03] MEDS: Lisinopril 20 MG Tablet 40 MG PO (10:39)
[2020-04-03] MEDS: Pantoprazole Sodium 20 MG Tablet PO (10:39)
[2020-04-03] MEDS: buPROPion (SR) 150 MG Tablet.SA PO (10:39)
[2020-04-03] MEDS: hydroCHLOROthiazide 12.5mg 25 MG PO (10:39)
--- NOTE | 2020-04-03 16:52 | CT_ITS ---
STUDY: CTA CHEST REASON FOR EXAM: Female, 54 years old. DYSPNEA, S/P APPENDECTOMY RADIATION DOSAGE (If Supplied By Facility): CTDIvol = ( 38.02 ) mGy, DLP = ( 664.29 ) mGycm TECHNIQUE: The examination was performed with the intravenous administration of IV 100mL Isovue-370. Post-processing of the angiographic images was performed, with multiplanar reformation and 3D reconstruction. Individualized dose optimization techniques were used for this CT. COMPARISON: None. FINDINGS: Normal enhancement of the main pulmonary artery and right and left pulmonary arteries. The interlobar segmental and proximal to mid subsegmental vessels are well opacified without evidence for intraluminal clot. The more distal subsegmental vessels are not well visualized in their entirety however there is no definitive evidence for intraluminal clot.. Normal thoracic aorta and visualized great vessels. There is no demonstrated aortic dissection. Normal heart and pericardium. Small subcentimeter mediastinal nodes.. Normal hilar regions. Normal visualized trachea and bronchi. The lungs are well expanded. Mild diffuse interstitial and emphysematous changes are seen. There is moderate size right pleural effusion and consolidation of the right lower lobe. There is also mild subsegmental atelectasis in left lower lobe. Normal chest wall structures. Dorsal spine demonstrates degenerative change Liver is enlarged and fatty infiltrated.. CT/CTA Chest W/WO Contrast IMPRESSION: Moderate size right pleural effusion and consolidation of the right lower lobe with mild subsegmental atelectasis at left base.. No definitive evidence for pulmonary embolus. Would recommend DOPPLER scan of the deep venous system of lower extremities for further evaluation if indicated Electronically Signed: Tonny Lord MD at 17:51 EDT , Service support ,
--- NOTE | 2020-04-03 16:54 | PCM.CONS.GEN ---
Reason for Consult Date of Consultation: 04/03/20 Reason for Consultation: consult requested by Dr. Daley for hypoxia. History of Present Illness: The patient is a 54 year old F who presents with abdominal pain that began last Wednesday and presented to the emergency room and was found to have perforated appendicitis. Patient underwent a laparoscopic appendectomy. Since then, patient has been noted to be hypoxic 78% on room air with activity and requiring high flow oxygen. Patient states that she has borderline COPD as told to her by her primary care provider. Patient has not seen a printed circuit board drafter. Currently she is complaining of abdominal pain but no bowel movements and minimal flatus at this time. [] Past Medical History Past Medical History (Chronic Problems): Chronic Problems COPD (chronic obstructive pulmonary disease) (Chronic) Hypertension (Chronic) GERD (gastroesophageal reflux disease) (Chronic) Anxiety and depression (Chronic) Allergies No Known Allergies Allergy (Verified 03/31/20 23:08) Home Medications: Ambulatory Orders Medication Instructions Recorded Albuterol Sulfate [Albuterol 2 puff INHALATION BID PRN 06/17/19 Sulfate Hfa] Bupropion HCl [Bupropion HCl Sr] 150 mg PO DAILY 06/17/19 Esomeprazole Magnesium [Nexium 20 mg PO DAILY 06/17/19 24Hr] Fluticasone 0.05% [Flonase Nasal 1 spray NASAL DAILY 06/17/19 [place]] Multivitamin [Daily Multiple 1 ea PO DAILY 06/17/19 Vitamin] Nicotine Polacrilex [Nicorette] 4 mg BC PRN PRN 06/17/19 Amoxicillin/Potassium Clav 1 ea PO BID 03/31/20 [Amox-Clav 875-125 mg Tablet] Lisinopril/Hydrochlorothiazide 2 ea PO DAILY 03/31/20 [Lisinopril-Hctz 20-12.5 mg Tab] Meloxicam [Mobic] 15 mg PO DAILY 03/31/20 Smoking Status: Light Smoker (<10/day) Tobacco Use: Cigarettes - *Family History Paternal History Items: Cancer Review of Systems Constitutional: Denies: Anorexia, Chills, Fever Eyes: Denies: Blurred vision, Double vision HEENT: Denies: Head Aches, Sinus Congestion, Sinus Drainage Cardiovascular: Denies: Chest Pain, Palpitations Respiratory: Reports: Cough, Shortness of Breath Gastrointestinal: Reports: Abdominal Pain, Nausea Comment: All review of systems were negative except as mentioned above in the history of present illness and the other review of systems. Patient Problems: Active and Suspected Problems Appendicitis (Acute) - Physical Exam Vitals/I&O's: Vital Signs Temp Pulse Resp BP Pulse Ox 37.0 C 95 20 H 148/83 H 95 04/03/20 16:38 04/03/20 16:38 04/03/20 16:38 04/03/20 16:38 04/03/20 16:38 Oxygen Flow Rate (L/min) 4 Oxygen Delivery Method Nasal Cannula Weight: 99.6 kg Body Mass Index (BMI) 38.9 Intake and Output for Last 24 Hours 04/01/20 04/02/20 04/03/20 23:59 23:59 23:59 Intake Total 4481.83 / 4481.83 4169.58 / 4169.58 3239.58 / 3239.58 Output Total 1665 / 1665 1540 / 1540 1830 / 1830 Balance 2816.83 / 2816.83 2629.58 / 2629.58 1409.58 / 1409.58 General: Alert, Cooperative, No apparent distress, - - Beside the bed. Uncomfortable. Able to do deep respirations without splinting. HEENT: Atraumatic, Normocephalic Oral: Moist Mucosa, No Gingival or Mucosal Lesions/ Ulcerations Lungs: Clear to auscultation, Normal air movement, No rhonchi, No wheeze Cardiovascular: Regular rate, Regular Rhythm, Normal S1, Normal S2 Abdomen: Hypoactive Bowel Sounds, Distended Extremities: No Calf Tenderness, Edema - Trace Skin: No rashes, No breakdown Neurological: Sensory exam intact to light touch and pain, Coordination normal Psych/Mental Status: Appropriate, Anxious Current Medications Acetaminophen (Tylenol) 650 mg PO Q4H PRN PRN PRN Reason: Pain 1-10 Or Fever >100.0 Last Admin: 04/01/20 16:50 Dose: 650 mg Documented by: Hydrocodone Bitart/Acetaminophen ([place] 5mg-325mg) 1 tablet PO Q4H PRN PRN PRN Reason: Pain Score 1-5/10 Last Admin: 04/02/20 23:52 Dose: 1 tablet Documented by: Albuterol Sulfate (Ventolin Aerosols) 2.5 mg INHALATION BID PRN PRN Reason: SOB &/OR WHEEZING Bupropion HCl (Wellbutrin Sr (150mg Tablets)) 150 mg PO DAILY [facility] Last Admin: 04/03/20 10:39 Dose: 150 mg Documented by: Fluticasone Propionate (Flonase Nasal [place]) 1 spray NASAL DAILY [facility] Last Admin: 04/03/20 10:38 Dose: 1 spray Documented by: Hydrochlorothiazide () 25 mg PO DAILY [facility] Last Admin: 04/03/20 10:39 Dose: 25 mg Documented by: Sodium Chloride () 250 mls @ 15 mls/hr IV .[id number] PRN PRN Reason: Saline Flush Last Infusion: 04/03/20 10:41 Dose: 0 mls/hr Documented by: Sodium Chloride () 250 mls @ 15 mls/hr IV .[id number] PRN PRN Reason: Additional IVPB Infusion Sodium Chloride () 250 mls @ 15 mls/hr IV .[id number] PRN PRN Reason: Saline Flush Piperacillin Sod/Tazobactam (Sod 3.375 gm/ Sodium Chloride) 50 mls @ 12.5 mls/hr IV Q8 [facility] Last Admin: 04/03/20 14:00 Dose: 12.5 mls/hr Documented by: Sodium Chloride () 1,000 mls @ 125 mls/hr IV .Q8H [facility] Last Infusion: 04/03/20 12:20 Dose: 125 mls/hr Documented by: Iopamidol (Contrast Allergy Check) 0 ml IV X1 [facility] Ketorolac Tromethamine (Toradol (Bkc)) 15 mg IV Q8 [facility] Stop: 04/06/20 16:29 Last Admin: 04/03/20 14:00 Dose: 15 mg Documented by: Lisinopril (Zestril) 40 mg PO DAILY [facility] Last Admin: 04/03/20 10:39 Dose: 40 mg Documented by: Morphine Sulfate () 4 mg IV Q1H PRN PRN PRN Reason: Pain Score 6-10/10 Last Admin: 04/03/20 02:35 Dose: 4 mg Documented by: Ondansetron HCl (Zofran) 4 mg IV Q8H PRN PRN PRN Reason: NAUSEA Pantoprazole Sodium (Protonix) 20 mg PO DAILY [facility] Last Admin: 04/03/20 10:39 Dose: 20 mg Documented by: Sodium Chloride () 10 - 40 ml IV UD PRN PRN Reason: SALINE FLUSH Last Admin: 04/02/20 06:00 Dose: 10 ml Documented by: Assessment/Plan All Active Problems Appendicitis (Acute) 1. Acute hypoxic respiratory failure: Suspect multifactorial. Least partially related with the patient's abdominal surgery though she is not really demonstrating any kind of splinting at this time. Patient has a reported history of borderline COPD. Given that her lungs are clear and does not really appear to be overtly volume overloaded, I am concerned about a pulmonary embolism being possibility. Unfortunately, given the surgery and the appendicitis, d-dimer would be of low yield as it would likely be elevated necessitating the need for a CTA anyway so I will bypass doing a chest x-ray because he and if that were unremarkable and with an elevated d-dimer a CTA of the chest would be performed. Continue to encourage patient to use incentive spirometer which patient states that she is using it 20 times per hour. Patient denies any sick contacts nor any COVID contacts. Add PRN aerosols. Additionally patient is not overly somnolent from narcotics. Patient last received morphine earlier this morning so I do not feel that is contributing to her symptoms at this time. Prior to discharge, patient will need to have an ambulatory pulse ox to see if she would still need to be qualified for home oxygen. 2. Appendicitis status post laparoscopic appendectomy. Was noted to be perforated. On Pipracillin/tazobactam. 3. COPD: On albuterol. Will increase the frequency of the as needed's every 2 hours. Patient will need follow-up pulmonology and have formal PFTs performed but to be performed at a later point as outpatient. 4. VTE prophylaxis: High risk for surgery. Will add SCDs for now. Patient is found to have pulmonary embolism she will need to be anticoagulated. Thank you for the consult. The hospital service will continue to following during this patient's hospitalization. Inpatient E&M: [id number] Init Hosp L3
[2020-04-03] MEDS: 0.9% Saline Lock 10 ML Syringe IV (22:40)
[2020-04-03] MEDS: Albuterol 2.5 MG/3 ML VIAL.NEB. INHALATION (23:14)
[2020-04-04] VITALS (7 sets, daily range): BP systolic 156–162; BP diastolic 84–98; PULSE 90–98; RESP 16–20; TEMP 36.6–38.2; O2SAT 81–96
[2020-04-04] MEDS: Psyllium 1 PACKET PO (02:39)
[2020-04-04] MEDS: 0.9% Saline Lock 10 ML Syringe IV (05:01)
[2020-04-04] MEDS: Ketorolac 15 MG/ML Vial IV ×2 (05:01→14:48)
[2020-04-04 05:54] LABS: Absolute Neutrophil Count 5.8 X10^3/uL (2.0-7.7); Basophil# 0.03 X10^3/uL; Basophil% 0.3 % (0-1); Eosinophil# 0.17 X10^3/uL; Eosinophils% 1.8 % (0-5); Lymphocyte % 29.1 % (19-41); Mean Corp Hgb Conc 32.4 g/dL (32-36); Mean Corpuscular Hgb 28.8 pg (27.0-32.0); Mean Platelet Vol. 9.7 fl (6.2-12.0); Monocyte# 0.77 X10^3/uL; NRBC Flagged by Analyzer 0 % (0-5); Neutrophil % 60.4 % (47-70); Platelet Count 227 K/mm3 (150-450); RBC Distribution Width CV 13.3 % (11.6-14.6); RBC Distribution Width SD 43.3 fl (35.1-43.9); Red Blood Count 3.82 M/mm3 (4.2-5.4); White Blood Count 9.6 K/mm3 (4.4-11.0)
[2020-04-04 06:45] LABS: Anion Gap 5 (5-15); BUN 8 mg/dL (7-18); BUN/Creat Ratio 11.7 RATIO (10-20); Calcium,Total 8.4 mg/dL (8.5-10.1); Chloride 102 mmol/L (98-107); Creatinine, Serum 0.68 mg/dL (0.55-1.02); EST Glomerular Filtration Rate 94 mL/min (>60); Est Glom Filt Rate - Afr Amer 114 mL/min (>60); Estimated Creatinine Clearance 76.42 ml/min; Glucose 100 mg/dL (74-106); Potassium 2.6 mmol/L (3.5-5.1); Sodium Level 139 mmol/L (136-145)
[2020-04-04 07:18] LABS: Magnesium 2.1 mg/dL (1.6-2.6)
--- NOTE | 2020-04-04 07:44 | PCM.PN.HOSP ---
Patient Problems: Active and Suspected Problems Appendicitis (Acute) Reason for Visit: Follow-up on hypoxia. s/p laparoscopic cholecystectomy Subjective: Patient was seen and examined. Patient feels better. On 2L oxygen. Denies any fever or chills. Objective: Physical exam: General: Alert, Cooperative, No apparent distress HEENT: Atraumatic, Normocephalic Oral: Moist Mucosa, No Gingival or Mucosal Lesions/ Ulcerations Lungs: Diminished at lung bases Cardiovascular: Regular rate, Regular Rhythm, Normal S1, Normal S2 Abdomen: Hypoactive Bowel Sounds, Distended Extremities: No Calf Tenderness, Edema - Trace Skin: No rashes, No breakdown Neurological: Sensory exam intact to light touch and pain, Coordination normal Psych/Mental Status: Appropriate, Anxious Vitals/I&O's: Vital Signs Temp Pulse Resp BP Pulse Ox 97.8 F 90 18 156/84 H 93 04/04/20 02:46 04/04/20 02:46 04/04/20 02:46 04/04/20 02:46 04/04/20 02:46 Oxygen Flow Rate (L/min) 4 Oxygen Delivery Method Nasal Cannula Weight: 99.6 kg Body Mass Index (BMI) 38.9 Intake and Output for Last 24 Hours 04/02/20 04/03/20 04/04/20 23:59 23:59 23:59 Intake Total 4169.58 / 4169.58 4856.25 / 4856.25 85.25 / 85.25 Output Total 1540 / 1540 2950 / 2950 Balance 2629.58 / 2629.58 1906.25 / 1906.25 85.25 / 85.25 Laboratory Results 04/04/20 05:32: WBC 9.6, RBC 3.82 L, Hgb 11.0 L, Hct 34.0 L, MCV 89.0, MCH 28.8, MCHC 32.4, RDW Std Deviation 43.3, RDW Coeff of Seven 13.3, Plt Count 227, MPV 9.7, Immature Gran % (Auto) 0.400, Neut % (Auto) 60.4, Lymph % (Auto) 29.1, Snyder % (Auto) 8.0, Eos % (Auto) 1.8, Baso % (Auto) 0.3, Absolute Neuts (auto) 5.8, Absolute Lymphs (auto) 2.80, Nucleated RBC % 0 04/04/20 05:32: Sodium 139, Potassium 2.6 L*, Chloride 102, Carbon Dioxide 32.0, Anion Gap 5, BUN 8, Creatinine 0.68, Estim Creat Clear Calc 76.42, Est GFR (MDRD) Af Amer 114, Est GFR (MDRD) Non-Af 94, BUN/Creatinine Ratio 11.7, Glucose 100, Calcium 8.4 L 04/04/20 05:32: Magnesium 2.1 Current Medications Acetaminophen (Tylenol) 650 mg PO Q4H PRN PRN PRN Reason: Pain 1-10 Or Fever >100.0 Last Admin: 04/01/20 16:50 Dose: 650 mg Documented by: Hydrocodone Bitart/Acetaminophen ([place] 5mg-325mg) 1 tablet PO Q4H PRN PRN PRN Reason: Pain Score 1-5/10 Last Admin: 04/02/20 23:52 Dose: 1 tablet Documented by: Albuterol Sulfate (Ventolin Aerosols) 2.5 mg INHALATION Q2H PRN PRN PRN Reason: SOB &/OR WHEEZING Last Admin: 04/03/20 23:14 Dose: 2.5 mg Documented by: Bupropion HCl (Wellbutrin Sr (150mg Tablets)) 150 mg PO DAILY [facility] Last Admin: 04/03/20 10:39 Dose: 150 mg Documented by: Fluticasone Propionate (Flonase Nasal [place]) 1 spray NASAL DAILY [facility] Last Admin: 04/03/20 10:38 Dose: 1 spray Documented by: Hydrochlorothiazide () 25 mg PO DAILY [facility] Last Admin: 04/03/20 10:39 Dose: 25 mg Documented by: Sodium Chloride () 250 mls @ 15 mls/hr IV .[id number] PRN PRN Reason: Saline Flush Last Infusion: 04/04/20 05:01 Dose: 0 mls/hr Documented by: Sodium Chloride () 250 mls @ 15 mls/hr IV .[id number] PRN PRN Reason: Additional IVPB Infusion Sodium Chloride () 250 mls @ 15 mls/hr IV .[id number] PRN PRN Reason: Saline Flush Piperacillin Sod/Tazobactam (Sod 3.375 gm/ Sodium Chloride) 50 mls @ 12.5 mls/hr IV Q8 [facility] Last Admin: 04/04/20 05:01 Dose: 12.5 mls/hr Documented by: Potassium Chloride () 10 meq in 100 mls @ 100 mls/hr IV BOLUS Q1H [facility] Stop: 04/04/20 11:29 Ketorolac Tromethamine (Toradol (Bkc)) 15 mg IV Q8 [facility] Stop: 04/06/20 16:29 Last Admin: 04/04/20 05:01 Dose: 15 mg Documented by: Lisinopril (Zestril) 40 mg PO DAILY [facility] Last Admin: 04/03/20 10:39 Dose: 40 mg Documented by: Morphine Sulfate () 4 mg IV Q1H PRN PRN PRN Reason: Pain Score 6-10/10 Last Admin: 04/03/20 02:35 Dose: 4 mg Documented by: Ondansetron HCl (Zofran) 4 mg IV Q8H PRN PRN PRN Reason: NAUSEA Pantoprazole Sodium (Protonix) 20 mg PO DAILY [facility] Last Admin: 04/03/20 10:39 Dose: 20 mg Documented by: Psyllium Hydrophilic Mucilloid (Metamucil) 1 packet PO DAILY [facility] Last Admin: 04/04/20 02:39 Dose: 1 packet Documented by: Sodium Chloride () 10 - 40 ml IV UD PRN PRN Reason: SALINE FLUSH Last Admin: 04/04/20 05:01 Dose: 10 ml Documented by: Medical Necessity - Tobacco Use Smoking Status: Light Smoker (<10/day) Tobacco Use: Cigarettes Assessment/Plan All Active Problems Appendicitis (Acute) 1. Acute hypoxic respiratory failure, secondary to atelectasis/right lower lobe pneumonia/right pleural effusion On 2L oxygen, continue to wean off oxygen, strongly encourage use of incentive spirometer. Pulmonology consulted, follow-up in the outpatient. Patient qualified for home oxygen and will be discharged with oxygen. 2. Right lower lobe pneumonia/parapneumonic effusion, on IV Zosyn Will recommend discharge on Augmentin for 1 week (making 10 days total antibiotics) 3. POD #3, s/p laparoscopic appendectomy, pain is controlled Continue on IV antibiotics 4. Hypertension, controlled, continue lisinopril and hydrochlorothiazide 5. COPD, not in acute exacerbation, pulmonology consulted Continue on PRN breathing treatments, follow-up in the outpatient 6. DVT prophylaxis with early ambulation Inpatient E&M: 91548 Subs Hosp L2
[2020-04-04] MEDS: Potassium Chloride 10mEq/100mL 10 MEQ/100 ML IV.SOLN. 100 MEQ IV BOLUS ×4 (08:09→11:30)
[2020-04-04] MEDS: Fluticasone 0.05% 1 SPRAY NASAL.SRY NASAL (09:17)
[2020-04-04] MEDS: hydroCHLOROthiazide 12.5mg 25 MG PO (09:18)
[2020-04-04] MEDS: Lisinopril 20 MG Tablet 40 MG PO (09:18)
[2020-04-04] MEDS: buPROPion (SR) 150 MG Tablet.SA PO (09:19)
[2020-04-04] MEDS: Pantoprazole Sodium 20 MG Tablet PO (09:19)
[2020-04-04 13:26] LABS: Anion Gap 4 (5-15); BUN 10 mg/dL (7-18); BUN/Creat Ratio 13.6 RATIO (10-20); Calcium,Total 8.7 mg/dL (8.5-10.1); Chloride 106 mmol/L (98-107); Creatinine, Serum 0.74 mg/dL (0.55-1.02); EST Glomerular Filtration Rate 86 mL/min (>60); Est Glom Filt Rate - Afr Amer 105 mL/min (>60); Estimated Creatinine Clearance 70.22 ml/min; Glucose 102 mg/dL (74-106); Potassium 3.2 mmol/L (3.5-5.1); Sodium Level 141 mmol/L (136-145)
[2020-04-04] MEDS: Albuterol 2.5 MG/3 ML VIAL.NEB. INHALATION (15:06)
--- NOTE | 2020-04-04 15:27 | PCM.CONS.PUL ---
Problem List (1) COPD (chronic obstructive pulmonary disease) Status: Chronic (2) Hypertension Status: Chronic (3) GERD (gastroesophageal reflux disease) Status: Chronic (4) Anxiety and depression Status: Chronic (5) Appendicitis Status: Acute Reason for Consult Date of Consultation: 04/04/20 Reason for Consultation: Hypoxia History of Present Illness: The patient is a 54 year old F, with past medical history listed below, who presented [facility] on 03/31/2020 secondary to severe abdominal pain, nausea, vomiting and diarrhea. Patient reportedly started to have symptoms 2 days prior to presentation and localized pain between the epigastric area and the right lower quadrant. Patient was unaware of any fever and denies any recent sick contacts. Patient did report some blood in vomitus, but no melena or hematochezia. Patient had had previous C-sections, but otherwise denied abdominal surgeries. In the ER, patient was noted to be afebrile, but tachycardic with saturations of 93% on room air. CT of the abdomen that showed a dilated proximal appendix with mild inflammatory change and a 3.2 sub-mucosal fibroid. Laboratory work-up showed a significant leukocytosis at 18.2, elevated hemoglobin of 15.5, hypokalemia at 3, but normal renal function. Patient was given morphine, Zofran and IV Protonix. Patient was admitted to the floor for further evaluation. On the following day, patient had an appendectomy and reportedly tolerated well, but persists in supplemental oxygen, so a pulmonary consult was obtained. Patient reports an extensive smoking history, but is never seen a sound person previously. Patient states that she is never had pulmonary function tests or needed supplemental oxygen in the past. Patient does report right pleuritic type pain along with her postoperative pain. Patient has not reported any significant increase in lower extremity edema. Patient does have a cough productive of clear to white sputum on a daily basis. Patient does report that this had turned more yellow by the time she presented to the emergency room. Review of systems otherwise negative from a constitutional, HEENT, respiratory, cardiovascular, GI, genitourinary, musculoskeletal, skin, neurologic, psychiatric and hematologic system unless stated above. Past Medical History Past Medical History (Chronic Problems): Chronic Problems COPD (chronic obstructive pulmonary disease) (Chronic) Hypertension (Chronic) GERD (gastroesophageal reflux disease) (Chronic) Anxiety and depression (Chronic) Allergies No Known Allergies Allergy (Verified 03/31/20 23:08) Home Medications: Ambulatory Orders Medication Instructions Recorded Albuterol Sulfate [Albuterol 2 puff INHALATION BID PRN 06/17/19 Sulfate Hfa] Bupropion HCl [Bupropion HCl Sr] 150 mg PO DAILY 06/17/19 Esomeprazole Magnesium [Nexium 20 mg PO DAILY 06/17/19 24Hr] Fluticasone 0.05% [Flonase Nasal 1 spray NASAL DAILY 06/17/19 [place]] Multivitamin [Daily Multiple 1 ea PO DAILY 06/17/19 Vitamin] Nicotine Polacrilex [Nicorette] 4 mg BC PRN PRN 06/17/19 Amoxicillin/Potassium Clav 1 ea PO BID 03/31/20 [Amox-Clav 875-125 mg Tablet] Lisinopril/Hydrochlorothiazide 2 ea PO DAILY 03/31/20 [Lisinopril-Hctz 20-12.5 mg Tab] Meloxicam [Mobic] 15 mg PO DAILY 03/31/20 Smoking Status: Light Smoker (<10/day) Tobacco Use: Cigarettes - *Family History Paternal History Items: Cancer Review of Systems Comment: See HPI Patient Problems: Active and Suspected Problems Appendicitis (Acute) Objective: CTA of the chest on presentation showed a small to moderate right pleural effusion with consolidation of the right lower lobe. No obvious embolism was noted. Patient did have emphysematous changes noted bilaterally. These appeared to be worse compared to CT of the abdomen completed on presentation. - Physical Exam Vitals/I&O's: Vital Signs Temp Pulse Resp BP Pulse Ox 38.2 C H 91 18 162/93 H 95 04/04/20 14:40 04/04/20 14:40 04/04/20 14:40 04/04/20 14:40 04/04/20 14:40 Oxygen Flow Rate (L/min) 2 Oxygen Delivery Method Nasal Cannula Weight: 99.6 kg Body Mass Index (BMI) 38.9 Intake and Output for Last 24 Hours 04/02/20 04/03/20 04/04/20 23:59 23:59 23:59 Intake Total 4169.58 / 4169.58 4856.25 / 4856.25 1235.25 / 1235.25 Output Total 1540 / 1540 2950 / 2950 Balance 2629.58 / 2629.58 1906.25 / 1906. 1235.25 / 1235.25 General: Alert, Oriented x3, Cooperative, No apparent distress, - - Obese. Speaking in full sentences. HEENT: Atraumatic, PERRLA, EOMI, Normocephalic, - - Supplemental oxygen in place Oral: Moist Mucosa, No Gingival or Mucosal Lesions/ Ulcerations Neck: Supple, No JVD, No Nodes, Trachea Midline Lungs: No wheeze, No rales, Diminished, Rhonchi - Right base, - - Prolonged exhalation Cardiovascular: Regular rate, Regular Rhythm, Normal S1, Normal S2, No murmurs, No rub noted, No Gallop Abdomen: Bowel Sounds Present, Soft, Tender - Slight guarding, but no rebound tenderness Extremities: No clubbing, No cyanosis, No edema Skin: Incision - Clean, dry and intact Musculoskeletal: No Tenderness to Palpation of Joints or Extremities Lymphatic: No Cervical, Supraclavicular, or Inguinal Adenopathy Neurological: Cranial nerves II-XII grossly intact, Neuro grossly intact, Motor Exam 5/5 strength throughout Psych/Mental Status: Alert and oriented to time, place, person, mood and affect Laboratory Results 04/04/20 05:32: WBC 9.6, RBC 3.82 L, Hgb 11.0 L, Hct 34.0 L, MCV 89.0, MCH 28.8, MCHC 32.4, RDW Std Deviation 43.3, RDW Coeff of Seven 13.3, Plt Count 227, MPV 9.7, Immature Gran % (Auto) 0.400, Neut % (Auto) 60.4, Lymph % (Auto) 29.1, [place] % (Auto) 8.0, Eos % (Auto) 1.8, Baso % (Auto) 0.3, Absolute Neuts (auto) 5.8, Absolute Lymphs (auto) 2.80, Nucleated RBC % 0 04/04/20 05:32: Sodium 139, Potassium 2.6 L*, Chloride 102, Carbon Dioxide 32.0, Anion Gap 5, BUN 8, Creatinine 0.68, Estim Creat Clear Calc 76.42, Est GFR (MDRD) Af Amer 114, Est GFR (MDRD) Non-Af 94, BUN/Creatinine Ratio 11.7, Glucose 100, Calcium 8.4 L 04/04/20 05:32: Magnesium 2.1 04/04/20 12:56: Sodium 141, Potassium 3.2 L, Chloride 106, Carbon Dioxide 31.0, Anion Gap 4 L, BUN 10, Creatinine 0.74, Estim Creat Clear Calc 70.22, Est GFR (MDRD) Af Amer 105, Est GFR (MDRD) Non-Af 86, BUN/Creatinine Ratio 13.6, Glucose 102, Calcium 8.7 Current Medications Acetaminophen (Tylenol) 650 mg PO Q4H PRN PRN PRN Reason: Pain 1-10 Or Fever >100.0 Last Admin: 04/01/20 16:50 Dose: 650 mg Documented by: Hydrocodone Bitart/Acetaminophen ([place] 5mg-325mg) 1 tablet PO Q4H PRN PRN PRN Reason: Pain Score 1-5/10 Last Admin: 04/02/20 23:52 Dose: 1 tablet Documented by: Albuterol Sulfate (Ventolin Aerosols) 2.5 mg INHALATION Q2H PRN PRN PRN Reason: SOB &/OR WHEEZING Last Admin: 04/04/20 15:06 Dose: 2.5 mg Documented by: Bupropion HCl (Wellbutrin Sr (150mg Tablets)) 150 mg PO DAILY [facility] Last Admin: 04/04/20 09:19 Dose: 150 mg Documented by: Fluticasone Propionate (Flonase Nasal [place]) 1 spray NASAL DAILY [facility] Last Admin: 04/04/20 09:17 Dose: 1 spray Documented by: Hydrochlorothiazide () 25 mg PO DAILY [facility] Last Admin: 04/04/20 09:18 Dose: 25 mg Documented by: Sodium Chloride () 250 mls @ 15 mls/hr IV .[id number] PRN PRN Reason: Saline Flush Last Infusion: 04/04/20 05:01 Dose: 0 mls/hr Documented by: Sodium Chloride () 250 mls @ 15 mls/hr IV .[id number] PRN PRN Reason: Additional IVPB Infusion Sodium Chloride () 250 mls @ 15 mls/hr IV .[id number] PRN PRN Reason: Saline Flush Piperacillin Sod/Tazobactam (Sod 3.375 gm/ Sodium Chloride) 50 mls @ 12.5 mls/hr IV Q8 [facility] Last Admin: 04/04/20 14:45 Dose: 12.5 mls/hr Documented by: Ketorolac Tromethamine (Toradol (Bkc)) 15 mg IV Q8 [facility] Stop: 04/06/20 16:29 Last Admin: 04/04/20 14:48 Dose: 15 mg Documented by: Lisinopril (Zestril) 40 mg PO DAILY [facility] Last Admin: 04/04/20 09:18 Dose: 40 mg Documented by: Morphine Sulfate () 4 mg IV Q1H PRN PRN PRN Reason: Pain Score 6-10/10 Last Admin: 04/03/20 02:35 Dose: 4 mg Documented by: Ondansetron HCl (Zofran) 4 mg IV Q8H PRN PRN PRN Reason: NAUSEA Pantoprazole Sodium (Protonix) 20 mg PO DAILY [facility] Last Admin: 04/04/20 09:19 Dose: 20 mg Documented by: Psyllium Hydrophilic Mucilloid (Metamucil) 1 packet PO DAILY [facility] Last Admin: 04/04/20 02:39 Dose: 1 packet Documented by: Sodium Chloride () 10 - 40 ml IV UD PRN PRN Reason: SALINE FLUSH Last Admin: 04/04/20 05:01 Dose: 10 ml Documented by: Clinical Impression(s) from Imaging Studies Abdomen/Pelvis CT 04/01/20 00:00 IMPRESSION: 1. Dilated proximal appendix with periappendiceal mild inflammatory change suspicious for acute appendicitis. An associated proximal appendicolith may be present. 2. 3.2 cm submucosal fibroid at the uterine fundus and an adjacent small endometrial fluid collection may be present. 3. Mildly enlarged fatty liver. Individualized dose optimization techniques were used for this CT. at 0059 Reported and signed by: Donnie Meeks MD Electronically Signed: Donnie Meeks, at 0:58 EDT Tel , Service support , ADDENDUM: 04/01/20 0108 IMPRESSION: 1. Dilated proximal appendix with periappendiceal mild inflammatory change suspicious for acute appendicitis. An associated proximal appendicolith may be present. 2. 3.2 cm submucosal fibroid at the uterine fundus and an adjacent small endometrial fluid collection may be present. 3. Mildly enlarged fatty liver. Individualized dose optimization techniques were used for this CT. at 0059 Reported and signed by: Donnie Meeks MD N.B. : The above information has been verbally conveyed by Donnie Meeks to Dr. Marlen Murry MD, on 04/01/2020 01:01:52 (ET). Electronically Signed: Donnie Meeks, at 0:58 EDT Tel , Service support , Chest CTA 04/03/20 16:52 IMPRESSION: Moderate size right pleural effusion and consolidation of the right lower lobe with mild subsegmental atelectasis at left base.. No definitive evidence for pulmonary embolus. Would recommend DOPPLER scan of the deep venous system of lower extremities for further evaluation if indicated Electronically Signed: Tonny Lord MD at 17:51 EDT , Service support , Assessment/Plan All Active Problems Appendicitis (Acute) RECOMMENDATIONS: 1. Complete 7 days of antibiotics 2. Encourage incentive spirometer and Acapella therapy 3. Walking oximetry prior to discharge 4. Outpatient complete PFT and sleep work-up, along with smoking cessation 5. Follow-up with nurse practitioner 2 weeks after discharge in our office IMPRESSIONS: 1. Acute hypoxic respiratory insufficiency Clinical suspicion for a baseline of COPD with emphysematous changes noted on CT scan. Patient does not appear to have acute clot noted to indicate a pulmonary embolism. PRN albuterol/duo nebs would be appropriate. Suggested aggressive pulmonary recruitment with Acapella and incentive spirometer. Patient will likely require a 7-day course of antibiotics. Outpatient complete pulmonary function test for quantification clarification of lung function. Patient should have a walking oximetry prior to discharge. Patient can follow-up in our office in 2 weeks to arrange for testing and possible discontinuation of supplemental oxygen. 2. Acute appendicitis status post appendectomy Appendix was reportedly perforated. Patient is on antibiotics at this time. These can likely be continued for a 7-day course. It will be very difficult to determine whether the right lower lobe is secondary to atelectasis versus pneumonia given she will have constitutional symptoms from the perforated appendix. Aggressive pulmonary recruitment may be helpful. Patient is significantly positive over the course of the hospitalization, but does not have lower extremity edema to suggest congestive heart failure. 3. Hypertension/obesity/anxiety/depression/probable KRISTINE Complicates care, management, recovery and prognosis. Patient would likely benefit from an outpatient evaluation of obstructive sleep apnea. Continue baseline medications for now. Inpatient E&M: 53761 Init Hosp L2
--- NOTE | 2020-04-04 15:45 | CPS ---
went into pt room. pt breathing in the high 20's. checked o2 and it was 89%. pt stated she needed to go to the bathroom and could not wait. once pt got back to bed she was more SOB. checked o2 and it was 76%. increased o2 to 3L. had pt deep breathe and calm down. placed pt on air breathing treatment. once treatment was done pt o2 was 93%. told RN everything.
--- NOTE | 2020-04-04 15:58 | CASEMGMT ---
RN SHAHEED updated that patient will need home oxygen at discharge. MARY HUMMEL in to discuss in-network DME. Patient provided with list and would like [facility]. MARY HUMMEL received script and referral [place] [facility] MARY HUMMEL called [facility] to arrange delivery of portable tank to patient's room prior to discharge.
--- NOTE | 2020-04-04 16:23 | PN.SURG_ITS ---
Patient Problems: Active and Suspected Problems Appendicitis (Acute) Subjective: patient has had BM and passing flatus Her postoperative course has been complicated by her respiratory status appreciate consultations from Internal Medicine and Pulmonary Medicine - Physical Exam Vitals/I&O's: Vital Signs Temp Pulse Resp BP Pulse Ox 100.7 F H 98 20 H 162/93 H 87 04/04/20 14:40 04/04/20 15:03 04/04/20 15:03 04/04/20 14:40 04/04/20 15:45 Oxygen Flow Rate (L/min) [ 4 AMBULATION with Oxygen] Oxygen Flow Rate (L/min) 1 Oxygen Delivery Method Nasal Cannula Weight: 99.6 kg Body Mass Index (BMI) 38.9 Intake and Output for Last 24 Hours 04/02/20 04/03/20 04/04/20 23:59 23:59 23:59 Intake Total 4169.58 / 4169.58 4856.25 / 4856.25 1251.08 / 1251.08 Output Total 1540 / 1540 2950 / 2950 Balance 2629.58 / 2629.58 1906.25 / 1906.25 1251.08 / 1251.08 General: Alert, Oriented x3 Neck: Supple Lungs: Normal air movement Cardiovascular: Regular rate Abdomen: Bowel Sounds Present, Soft, - - dressings intact, KATIE output is serosanguinous - not cloudy Laboratory Results 04/04/20 05:32: WBC 9.6, RBC 3.82 L, Hgb 11.0 L, Hct 34.0 L, MCV 89.0, MCH 28.8, MCHC 32.4, RDW Std Deviation 43.3, RDW Coeff of Seven 13.3, Plt Count 227, MPV 9.7, Immature Gran % (Auto) 0.400, Neut % (Auto) 60.4, Lymph % (Auto) 29.1, [place] % (Auto) 8.0, Eos % (Auto) 1.8, Baso % (Auto) 0.3, Absolute Neuts (auto) 5.8, Absolute Lymphs (auto) 2.80, Nucleated RBC % 0 04/04/20 05:32: Sodium 139, Potassium 2.6 L*, Chloride 102, Carbon Dioxide 32.0, Anion Gap 5, BUN 8, Creatinine 0.68, Estim Creat Clear Calc 76.42, Est GFR (MDRD) Af Amer 114, Est GFR (MDRD) Non-Af 94, BUN/Creatinine Ratio 11.7, Glucose 100, Calcium 8.4 L 04/04/20 05:32: Magnesium 2.1 04/04/20 12:56: Sodium 141, Potassium 3.2 L, Chloride 106, Carbon Dioxide 31.0, Anion Gap 4 L, BUN 10, Creatinine 0.74, Estim Creat Clear Calc 70.22, Est GFR (MDRD) Af Amer 105, Est GFR (MDRD) Non-Af 86, BUN/Creatinine Ratio 13.6, Glucose 102, Calcium 8.7 Current Medications Acetaminophen (Tylenol) 650 mg PO Q4H PRN PRN PRN Reason: Pain 1-10 Or Fever >100.0 Last Admin: 04/01/20 16:50 Dose: 650 mg Documented by: Hydrocodone Bitart/Acetaminophen ([place] 5mg-325mg) 1 tablet PO Q4H PRN PRN PRN Reason: Pain Score 1-5/10 Last Admin: 04/02/20 23:52 Dose: 1 tablet Documented by: Albuterol Sulfate (Ventolin Aerosols) 2.5 mg INHALATION Q2H PRN PRN PRN Reason: SOB &/OR WHEEZING Last Admin: 04/04/20 15:06 Dose: 2.5 mg Documented by: Bupropion HCl (Wellbutrin Sr (150mg Tablets)) 150 mg PO DAILY [facility] Last Admin: 04/04/20 09:19 Dose: 150 mg Documented by: Fluticasone Propionate (Flonase Nasal [place]) 1 spray NASAL DAILY [facility] Last Admin: 04/04/20 09:17 Dose: 1 spray Documented by: Hydrochlorothiazide () 25 mg PO DAILY [facility] Last Admin: 04/04/20 09:18 Dose: 25 mg Documented by: Sodium Chloride () 250 mls @ 15 mls/hr IV .[id number] PRN PRN Reason: Saline Flush Last Infusion: 04/04/20 05:01 Dose: 0 mls/hr Documented by: Sodium Chloride () 250 mls @ 15 mls/hr IV .[id number] PRN PRN Reason: Additional IVPB Infusion Sodium Chloride () 250 mls @ 15 mls/hr IV .[id number] PRN PRN Reason: Saline Flush Piperacillin Sod/Tazobactam (Sod 3.375 gm/ Sodium Chloride) 50 mls @ 12.5 mls/hr IV Q8 [facility] Last Infusion: 04/04/20 16:01 Dose: 100 mls/hr Documented by: Ketorolac Tromethamine (Toradol (Bkc)) 15 mg IV Q8 [facility] Stop: 04/06/20 16:29 Last Admin: 04/04/20 14:48 Dose: 15 mg Documented by: Lisinopril (Zestril) 40 mg PO DAILY [facility] Last Admin: 04/04/20 09:18 Dose: 40 mg Documented by: Morphine Sulfate () 4 mg IV Q1H PRN PRN PRN Reason: Pain Score 6-10/10 Last Admin: 04/03/20 02:35 Dose: 4 mg Documented by: Ondansetron HCl (Zofran) 4 mg IV Q8H PRN PRN PRN Reason: NAUSEA Pantoprazole Sodium (Protonix) 20 mg PO DAILY [facility] Last Admin: 04/04/20 09:19 Dose: 20 mg Documented by: Psyllium Hydrophilic Mucilloid (Metamucil) 1 packet PO DAILY [facility] Last Admin: 04/04/20 02:39 Dose: 1 packet Documented by: Sodium Chloride () 10 - 40 ml IV UD PRN PRN Reason: SALINE FLUSH Last Admin: 04/04/20 05:01 Dose: 10 ml Documented by: Medical Necessity - Tobacco Use Smoking Status: Light Smoker (<10/day) Tobacco Use: Cigarettes Assessment/Plan All Active Problems Appendicitis (Acute) POD#3 s/p laparoscopic appendectomy with perforated appendicitis Discussion/Plan: Patient will be discharged to home She can follow up in my clinic on Wednesday for drain removal and wound check She will also follow up with Pulmonary Medicine as an outpatient She will require home oxygen as she has poor respiratory status I have encouraged her to d/c TOB use, do incentive spirometry and ambulate frequently when she goes home Regular diet for home
--- NOTE | 2020-04-04 16:27 | PCM.DC.APPY ---
Discharge Diet: No Restrictions - drink plenty of fluids Discharge Activity: Return to Normal Activity, May not drive while taking narcotic pain medications. Lifting Restrictions: no lifting/pushing/pulling greater than 10 pounds for two weeks Call your doctor if your incision/area has: Continuous Slow Oozing, Foul Smelling Discharge Call your doctor if you observe: Fever of 101 or Higher Additional Instructions: Recommended pain control regimen - May take 600 mg ibuprofen (Motrin) and then in 3-4 hours, may take 650 mg acetaminophen (Tylenol), then in 3-4 hours may take 600 mg ibuprofen, then in 3-4 hours may take 650 mg acetaminophen and so on for 2-3 days May take narcotic pain medication for pain that is not controlled by above and at night for comfort through the night Leave dressings in place Sponge bathe only Medications to take at Discharge Albuterol Sulfate [Albuterol Sulfate Hfa] 2 puff INHALATION BID PRN 06/17/19 Bupropion HCl [Bupropion HCl Sr] 150 mg PO DAILY 06/17/19 Esomeprazole Magnesium [Nexium 24Hr] 20 mg PO DAILY 06/17/19 Fluticasone 0.05% [Flonase Nasal [place]] 1 spray NASAL DAILY 06/17/19 Multivitamin [Daily Multiple Vitamin] 1 ea PO DAILY 06/17/19 Nicotine Polacrilex [Nicorette] 4 mg BC PRN PRN 06/17/19 Amoxicillin/Potassium Clav [Amox-Clav 875-125 mg Tablet] 1 ea PO BID 03/31/20 Lisinopril/Hydrochlorothiazide [Lisinopril-Hctz 20-12.5 mg Tab] 2 ea PO DAILY 03/31/20 Meloxicam [Mobic] 15 mg PO DAILY 03/31/20 Amoxicillin/Potassium Clav [Augmentin 875-125 Tablet] 1 ea PO Q12H 7 Days #14 tab 04/04/20 Hydrocodone Bitart/Apap 5-325 [[place] 5MG-325MG] 1 tablet PO Q8H PRN PRN 5 Days #15 tablet 04/04/20 Allergies/Adverse Reactions: Allergies No Known Allergies Allergy (Verified 03/31/20 23:08) The following prescriptions were given: Amoxicillin/Potassium Clav [Augmentin 875-125 Tablet] 1 ea PO Q12H 7 Days #14 tab Transmission Status: Pending to [facility]/pharmacy #[id number] Hydrocodone Bitart/Apap 5-325 [[place] 5MG-325MG] 1 tablet PO Q8H PRN PRN 5 Days #15 tablet PRN Reason: Pain Score 6-10/10 Transmission Status: Received by [facility]pharmacy #[id number] Primary Care Physician: Tonny De La Cruz MD [Primary Care Provider] - Test Results: Test results from this visit will be discussed in further detail at your follow-up appointment, if applicable. Please Follow Up With: Claudia Daley MD - call When: to be seen on Apr 09, please call for a time, thank you
--- NOTE | 2020-04-04 16:29 | PCM.DC.BLA ---
Discharge Summary Date of Admission: 03/31/20 Date of Discharge: 04/04/20 Summary: Alecia Madsen is a 54 y/o WF who presented to the ED late Wednesday night with complaint of abdominal pain. She underwent evaluation and was found to have elevated WBC and CT scan findings of appendicitis. She underwent laparoscopic appendectomy early on 04/01/2020 and found to have perforated appendicitis with peritonitis. She had intraabdominal drain placed. Postoperatively her recovery was complicated by her obesity (BMI 38), poor pulmonary function and lack of motivation for ambulation and incentive spirometry. Her WBC normalized and she remained afebrile, however, her oxygen saturations were poor. This continued through to POD#2 for which Internal Medicine consultation was obtained. Chest CT to rule out PE was negative, however, patient was noted to have atelectasis. Pulmonary Medicine was consulted on POD#3. Patient to be discharged on home oxygen supplementation. She was discharged on POD#3, tolerating a regular diet, afebrile with intraabdominal drain intact. She will follow up as an outpatient to have drain removed. She will follow up as an outpatient with Pulmonary Medicine. Patient Problems: Active and Suspected Problems Appendicitis (Acute) - Physical Exam Vitals/I&O's: Vital Signs Temp Pulse Resp BP Pulse Ox 100.7 F H 98 20 H 162/93 H 87 04/04/20 14:40 04/04/20 15:03 04/04/20 15:03 04/04/20 14:40 04/04/20 15:45 Oxygen Flow Rate (L/min) [ 4 AMBULATION with Oxygen] Oxygen Flow Rate (L/min) 1 Oxygen Delivery Method Nasal Cannula Weight: 99.6 kg Body Mass Index (BMI) 38.9 Intake and Output for Last 24 Hours 04/02/20 04/03/20 04/04/20 23:59 23:59 23:59 Intake Total 4169.58 / 4169.58 4856.25 / 4856.25 1251.08 / 1251.08 Output Total 1540 / 1540 2950 / 2950 Balance 2629.58 / 2629.58 1906.25 / 1906.25 1251.08 / 1251.08 Laboratory Results 04/04/20 05:32: WBC 9.6, RBC 3.82 L, Hgb 11.0 L, Hct 34.0 L, MCV 89.0, MCH 28.8, MCHC 32.4, RDW Std Deviation 43.3, RDW Coeff of Seven 13.3, Plt Count 227, MPV 9.7, Immature Gran % (Auto) 0.400, Neut % (Auto) 60.4, Lymph % (Auto) 29.1, Ramsey % (Auto) 8.0, Eos % (Auto) 1.8, Baso % (Auto) 0.3, Absolute Neuts (auto) 5.8, Absolute Lymphs (auto) 2.80, Nucleated RBC % 0 04/04/20 05:32: Sodium 139, Potassium 2.6 L*, Chloride 102, Carbon Dioxide 32.0, Anion Gap 5, BUN 8, Creatinine 0.68, Estim Creat Clear Calc 76.42, Est GFR (MDRD) Af Amer 114, Est GFR (MDRD) Non-Af 94, BUN/Creatinine Ratio 11.7, Glucose 100, Calcium 8.4 L 04/04/20 05:32: Magnesium 2.1 04/04/20 12:56: Sodium 141, Potassium 3.2 L, Chloride 106, Carbon Dioxide 31.0, Anion Gap 4 L, BUN 10, Creatinine 0.74, Estim Creat Clear Calc 70.22, Est GFR (MDRD) Af Amer 105, Est GFR (MDRD) Non-Af 86, BUN/Creatinine Ratio 13.6, Glucose 102, Calcium 8.7 Current Medications Acetaminophen (Tylenol) 650 mg PO Q4H PRN PRN PRN Reason: Pain 1-10 Or Fever >100.0 Last Admin: 04/01/20 16:50 Dose: 650 mg Documented by: Hydrocodone Bitart/Acetaminophen ([place] 5mg-325mg) 1 tablet PO Q4H PRN PRN PRN Reason: Pain Score 1-5/10 Last Admin: 04/02/20 23:52 Dose: 1 tablet Documented by: Albuterol Sulfate (Ventolin Aerosols) 2.5 mg INHALATION Q2H PRN PRN PRN Reason: SOB &/OR WHEEZING Last Admin: 04/04/20 15:06 Dose: 2.5 mg Documented by: Bupropion HCl (Wellbutrin Sr (150mg Tablets)) 150 mg PO DAILY KIRAN Last Admin: 04/04/20 09:19 Dose: 150 mg Documented by: Fluticasone Propionate (Flonase Nasal [place]) 1 spray NASAL DAILY [facility] Last Admin: 04/04/20 09:17 Dose: 1 spray Documented by: Hydrochlorothiazide () 25 mg PO DAILY [facility] Last Admin: 04/04/20 09:18 Dose: 25 mg Documented by: Sodium Chloride () 250 mls @ 15 mls/hr IV .[id number] PRN PRN Reason: Saline Flush Last Infusion: 04/04/20 05:01 Dose: 0 mls/hr Documented by: Sodium Chloride () 250 mls @ 15 mls/hr IV .[id number] PRN PRN Reason: Additional IVPB Infusion Sodium Chloride () 250 mls @ 15 mls/hr IV .[id number] PRN PRN Reason: Saline Flush Piperacillin Sod/Tazobactam (Sod 3.375 gm/ Sodium Chloride) 50 mls @ 12.5 mls/hr IV Q8 [facility] Last Infusion: 04/04/20 16:01 Dose: 100 mls/hr Documented by: Ketorolac Tromethamine (Toradol (Bkc)) 15 mg IV Q8 [facility] Stop: 04/06/20 16:29 Last Admin: 04/04/20 14:48 Dose: 15 mg Documented by: Lisinopril (Zestril) 40 mg PO DAILY [facility] Last Admin: 04/04/20 09:18 Dose: 40 mg Documented by: Morphine Sulfate () 4 mg IV Q1H PRN PRN PRN Reason: Pain Score 6-10/10 Last Admin: 04/03/20 02:35 Dose: 4 mg Documented by: Ondansetron HCl (Zofran) 4 mg IV Q8H PRN PRN PRN Reason: NAUSEA Pantoprazole Sodium (Protonix) 20 mg PO DAILY [facility] Last Admin: 04/04/20 09:19 Dose: 20 mg Documented by: Psyllium Hydrophilic Mucilloid (Metamucil) 1 packet PO DAILY [facility] Last Admin: 04/04/20 02:39 Dose: 1 packet Documented by: Sodium Chloride () 10 - 40 ml IV UD PRN PRN Reason: SALINE FLUSH Last Admin: 04/04/20 05:01 Dose: 10 ml Documented by:
--- NOTE | 2020-04-05 17:07 | CASEMGMT ---
MARY HUMMEL Discharge Follow-up Phone Call: ANAND: Pily Strata: 3 Call Date: 04/05/2020 Discharge Date: 04/04/2020 Time of Call: 1700 Duration: 7 minutes Admitting Diagnosis: Acute appendicitis Call placed to patient. Pt states she is doing well since discharge. Reports pain to be a 3-4 and is using Tylenol, Motrin and the Oxycodone as prescribed. Pt c/o nausea and decreased appetite. Educated pt on need to eat a snack when taking the Motrin or Oxycodone to prevent gastric upset. Pt states she has not been doing this but will when taking these going forward. Pt states some of the tape has come off and plans to reinforce this later this evening when assistance is available. Pt states the drain is intact. Pt states she is unable to visualize her incision. Pt states she has not checked her temperature but has not felt febrile. She relays being up and around in her home today a lot due to having little ones. Pt has called Dr. Daley's office and has a follow-up appointment on the around 4pm. Pt inquired about follow-up with her PCP and with the printing gray cloth tender. Instructed her to call Dr. De La Cruz's office to schedule an appointment for 1-2 weeks for a follow-up and per Dr. Licea's consult instructed pt to follow-up with him in 2 weeks. Phone number to Dr. Licea's office provided. Pt denied any further questions or concerns. Ellie Carrera RN CM
== END 2020-04-04 17:50 | disposition home or self-care (01) | DRG 233 ==
LOC: ED 04-01 01:16 → MS3 04-01 01:28
PROVIDERS: Anesthesiology; Hospitalist; Admitting Provider Surgery; Emergency Provider Emergency Medicine; PCP Family Medicine; Visit Provider Internal Medicine
PROC: 0DTJ4ZZ Resection of Appendix, Percutaneous Endoscopic Approach (ICD-10-PCS; CPT 44970; principal; 2020-04-01 06:15)
DX: K35.32 Acute appendicitis with perforation, localized peritonitis, and gangrene, without abscess (principal); J44.0 Chronic obstructive pulmonary disease with (acute) lower respiratory infection; J18.9 Pneumonia, unspecified organism; J96.01 Acute respiratory failure with hypoxia; J98.11 Atelectasis; J91.8 Pleural effusion in other conditions classified elsewhere; G47.33 Obstructive sleep apnea (adult) (pediatric); I10 Essential (primary) hypertension; E87.6 Hypokalemia; K21.9 Gastro-esophageal reflux disease without esophagitis; F32.9 Major depressive disorder, single episode, unspecified; F41.9 Anxiety disorder, unspecified; F17.210 Nicotine dependence, cigarettes, uncomplicated; E66.9 Obesity, unspecified; Z68.38 Body mass index [BMI] 38.0-38.9, adult; Z79.1 Long term (current) use of non-steroidal anti-inflammatories (NSAID); Z79.899 Other long term (current) drug therapy
CPT/HCPCS: 36415; 71275; 74177; 80048; 80076; 83690; 83735; 85025; 88304; 93005; 94640; 94667; 97116; 97162; 97530; 99251; 99285; J7030; J7040; J7050; J7120; Q9967; A4216; G0463; J2405; J3490

== ENCOUNTER → 2020-06-20 10:40 | Outpatient (CLI) | payer MEDICAID, SELFPAY ==
[2020-06-10 14:03] VITALS: BMI 39.4
--- NOTE | 2020-06-21 13:11 | PFT ---
INTRODUCTION: The patient is a 55-year-old female that presents for pulmonary function studies secondary to a diagnosis of COPD. Respiratory therapy reports good patient effort. Bronchodilators were used during testing. INTERPRETATION: Forced expiration spirometry demonstrates the presence of a moderate large airways obstructive ventilatory defect. There was no significant response to aerosolized bronchodilators. Spirograms are of good quality and plateau gradually indicating slow emptying of the lungs. Body plethysmography was performed and reveals lung volumes to be within normal limits. Diffusing capacity by single breath CO is reduced at 43% of predicted. IMPRESSION: Irreversible moderate large airways obstructive ventilatory defect with preserved lung volumes and symmetric reduction in diffusing capacity.
== END ==
PROVIDERS: PCP Family Medicine; Referring Provider Nurse Practitioner Acute Care; Visit Provider Nurse Practitioner Acute Care
DX: J44.9 Chronic obstructive pulmonary disease, unspecified (principal)
CPT/HCPCS: 94060; 94726; 94729

== ENCOUNTER → 2020-07-19 12:27 | Outpatient (CLI) | payer MEDICAID, SELFPAY ==
[2020-06-10 14:03] VITALS: BMI 39.4
[2020-07-19 12:54] VITALS: PULSE 101; PULSE 106; PULSE 86; PULSE 90; PULSE 94; PULSE 95; O2SAT 85; O2SAT 90; O2SAT 91; O2SAT 92; O2SAT 96
--- NOTE | 2020-07-19 12:56 | CPS ---
Patient states before testing that she has O2 at home, she has a concentrator and small tanks. She states that she doesn't really ever wear it. She also has a pulse ox at home. After the 1st minute of testing patient was 85% on room air, placed patient on 2 lpm O2 at that time and let patient recover. Patient stated she wasn't really short of breath at that time but SpO2 did drop to 83% while she was placing her nasal cannula. SpO2 recovered fairly quickly to 94%, at that time we began to walk again. Patient was able to maintain a SpO2 of 90% or greater without taking breaks for the remainder of the test. After testing I stressed the importance of wearing oxygen while ambulating and to check her SpO2 at home and to not let it go below 90%. Patient states she has a followup with Dr. Licea sometime after her sleep study on 07/29/20.
--- NOTE | 2020-07-20 06:06 | PCM.PSN.6M ---
PSN 6 Minute Walk Test - 6 Minute Walk Test 6 Minute Walk Test: 6 Minute Walk Test PSN:6-Minute Walk Test Start: 07/19/20 12:54 Freq: Status: Active Protocol: RESP.6MINW Document 07/19/20 12:54 LUISA (Rec: 07/19/20 13:02 LUISA [id number]) 6 Minute Walk Test Date Performed 07/19/20 Time Performed 12:30 Height 5 ft 3 in Weight: 220 lb Weight in Pounds 220.[address]: Shelly Paredes BRIMMER BLOCKER Assistive device used: None Pre-test Oxygen Delivery Method Room Air Pulse Ox (%) 91 Pulse Rate (60-100 beats/min) 86 Dyspnea Iliana Scale (0-10) 0 Exertion Iliana Scale (6-20) 6 1st minute Oxygen Delivery Method Room Air Pulse Ox (%) 85 Pulse Rate (60-100 beats/min) 101 H 2nd minute Oxygen Flow Rate (L/min) (L/min) 2 Oxygen Delivery Method Nasal Cannula Pulse Ox (%) 92 Pulse Rate (60-100 beats/min) 95 3rd minute Oxygen Flow Rate (L/min) (L/min) 2 Oxygen Delivery Method Nasal Cannula Pulse Ox (%) 90 Pulse Rate (60-100 beats/min) 94 4th minute Oxygen Flow Rate (L/min) (L/min) 2 Oxygen Delivery Method Nasal Cannula Pulse Ox (%) 90 Pulse Rate (60-100 beats/min) 90 5th minute Oxygen Flow Rate (L/min) (L/min) 2 Oxygen Delivery Method Nasal Cannula Pulse Ox (%) 91 Pulse Rate (60-100 beats/min) 101 H 6th minute Oxygen Flow Rate (L/min) (L/min) 2 Oxygen Delivery Method Nasal Cannula Pulse Ox (%) 91 Pulse Rate (60-100 beats/min) 106 H Dyspnea Iliana Scale (0-10) 3 Exertion Iliana Scale (6-20) 13 Post-test Oxygen Flow Rate (L/min) (L/min) 2 Oxygen Delivery Method Nasal Cannula Pulse Ox (%) 96 Pulse Rate (60-100 beats/min) 90 Full Laps Walked 16 Partial Lap, Number of Tiles Walked 15 Total Distance Walked (ft) 959 07/19/20 12:56 Cardiopulmonary Services by Romy Edmond Patient states before testing that she has O2 at home, she has a concentrator and small tanks. She states that she doesn't really ever wear it. She also has a pulse ox at home. After the 1st minute of testing patient was 85% on room air, placed patient on 2 lpm O2 at that time and let patient recover. Patient stated she wasn't really short of breath at that time but SpO2 did drop to 83% while she was placing her nasal cannula. SpO2 recovered fairly quickly to 94%, at that time we began to walk again. Patient was able to maintain a SpO2 of 90% or greater without taking breaks for the remainder of the test. After testing I stressed the importance of wearing oxygen while ambulating and to check her SpO2 at home and to not let it go below 90%. Patient states she has a followup with Dr. Licea sometime after her sleep study on 07/29/20. Initialized on 07/19/20 12:56 - END OF NOTE - Interpretation Interpretation: The patient ambulated 959 feet over the course of 6 minutes beginning on room air without assistive devices or breaks. Pretesting oxygen saturation was noted to be 91% on room air. With ambulation, the sal oxygen saturation was 85%. 2 L/min of supplemental oxygen was applied, and the patient was able to complete the remainder of the test while maintaining appropriate oxygen saturations. - Recommendations Recommendations: 2 L/min of supplemental oxygen should be utilized with exertion.
== END ==
PROVIDERS: PCP Family Medicine; Referring Provider Nurse Practitioner Acute Care; Visit Provider Nurse Practitioner Acute Care
DX: J44.9 Chronic obstructive pulmonary disease, unspecified (principal)
CPT/HCPCS: 94618

== ENCOUNTER → 2020-07-29 20:00 | Outpatient (CLI) | payer MEDICAID, SELFPAY ==
[2020-06-10 14:03] VITALS: BMI 39.4
== END ==
PROVIDERS: PCP Family Medicine; Visit Provider Nurse Practitioner Acute Care
DX: G47.33 Obstructive sleep apnea (adult) (pediatric) (principal)
CPT/HCPCS: 95810

== ENCOUNTER → 2020-08-29 13:45 | Outpatient (CLI) | payer MEDICAID, SELFPAY ==
[2020-06-10 14:03] VITALS: BMI 39.4
== END ==
PROVIDERS: PCP Family Medicine; Visit Provider Nurse Practitioner Acute Care
DX: G47.33 Obstructive sleep apnea (adult) (pediatric) (principal)

== ENCOUNTER → 2021-02-04 12:53 | Outpatient (CLI) | payer MEDICAID, SELFPAY ==
[2020-10-18 11:16] VITALS: BMI 39.8
--- NOTE | 2021-02-04 14:05 | PFTCOMP ---
COMPLETE PULMONARY FUNCTION TEST INTERPRETATION Brief HPI: Patient is a 55 year old female, currently under the care of myself, who presents to [facility] for complete pulmonary function tests secondary to diagnosis of COPD. Respiratory therapist reports good effort and reproducible results. Interpretation: Forced expiration spirometry shows a moderate large airways obstructive ventilatory defect with an FEV1 of 66% predicted. There is no significant bronchodilator response by strict ATS criteria. Spirograms are of good quality and plateau slowly, indicating slowly emptying areas of the lungs. The respiratory flow volume loop shows decreased expiratory flow rates at all lung volumes consistent with airway obstruction. Lung volumes by body plethysmography show a normal total lung capacity at 3.96 L, 84% predicted. All other lung volumes are within normal limits. Diffusion capacity by carbon monoxide is decreased at 51% predicted. The airway resistance is normal. Compared to previous pulmonary function tests from 06/20/2020, there is been significant improvement with air-trapping. Impression: Irreversible moderate large airways obstructive ventilatory defect with disproportionate reduction in diffusion capacity.
== END ==
PROVIDERS: PCP Family Medicine; Referring Provider Internal Medicine Critical Care Medicine; Visit Provider Internal Medicine Critical Care Medicine
DX: J44.9 Chronic obstructive pulmonary disease, unspecified (principal); G47.33 Obstructive sleep apnea (adult) (pediatric)
CPT/HCPCS: 94060; 94726; 94729

== ENCOUNTER → 2021-02-06 12:03 | Outpatient (CLI) | payer MEDICAID, SELFPAY ==
[2020-10-18 11:16] VITALS: BMI 39.8
[2021-02-06 12:30] VITALS: PULSE 100; PULSE 102; PULSE 72; PULSE 81; PULSE 86; PULSE 91; PULSE 93; PULSE 94; O2SAT 85; O2SAT 86; O2SAT 89; O2SAT 90; O2SAT 92; O2SAT 93
--- NOTE | 2021-02-06 12:45 | CPS ---
PT ARRIVED ON ROOM AIR. SATS 92% AT ONE MIN PT SATS DROPPED TO 85% PLACED ON 2L OXYGEN. STATS INCREASED TO 93%. CONTINUED WALKING AND AT MINUTE 3 SATS WERE 86% PLACED PT ON 3L NC FOR REMAINDER OF WALK. PT ADMITTED SHE HAS HOME OXYGEN AND DIDNT WEAR IT RELIGIOUSLY AT HOME. DOES WEAR HER HOME CPAP.
--- NOTE | 2021-02-06 14:22 | PCM.PSN.6M ---
PSN 6 Minute Walk Test 6 Minute Walk Test 6 Minute Walk Test: 6 Minute Walk Test PSN:6-Minute Walk Test Start: 02/06/21 12:42 Freq: Status: Active Protocol: RESP.6MINW Document 02/06/21 12:30 EW (Rec: 02/06/21 12:47 EW [id number]) 6 Minute Walk Test Date Performed 02/06/21 Time Performed 12:30 Height 5 ft 3 in Weight: 104.326 kg Weight in Pounds 230.[address]: Feliciano Licea Assistive device used: None Pre-test Oxygen Delivery Method Room Air Pulse Ox (%) 92 Pulse Rate (60-100 beats/min) 72 Dyspnea Iliana Scale (0-10) 1 Exertion Iliana Scale (6-20) 8 1st minute Oxygen Flow Rate (L/min) (L/min) 2 Oxygen Delivery Method Nasal Cannula Pulse Ox (%) 85 Pulse Rate (60-100 beats/min) 100 2nd minute Oxygen Flow Rate (L/min) (L/min) 2 Oxygen Delivery Method Nasal Cannula Pulse Ox (%) 90 Pulse Rate (60-100 beats/min) 86 3rd minute Oxygen Flow Rate (L/min) (L/min) 3 Oxygen Delivery Method Nasal Cannula Pulse Ox (%) 86 Pulse Rate (60-100 beats/min) 91 4th minute Oxygen Flow Rate (L/min) (L/min) 3 Oxygen Delivery Method Nasal Cannula Pulse Ox (%) 90 Pulse Rate (60-100 beats/min) 94 5th minute Oxygen Flow Rate (L/min) (L/min) 3 Oxygen Delivery Method Nasal Cannula Pulse Ox (%) 90 Pulse Rate (60-100 beats/min) 93 6th minute Oxygen Flow Rate (L/min) (L/min) 3 Oxygen Delivery Method Nasal Cannula Pulse Ox (%) 89 Pulse Rate (60-100 beats/min) 102 H Post-test Oxygen Flow Rate (L/min) (L/min) 3 Oxygen Delivery Method Nasal Cannula Pulse Ox (%) 93 Pulse Rate (60-100 beats/min) 81 Dyspnea Iliana Scale (0-10) 3 Exertion Iliana Scale (6-20) 11 Full Laps Walked 16 Partial Lap, Number of Tiles Walked 0 Total Distance Walked (ft) 944 02/06/21 12:45 Cardiopulmonary Services by Jane Sylvester PT ARRIVED ON ROOM AIR. SATS 92% AT ONE MIN PT SATS DROPPED TO 85% PLACED ON 2L OXYGEN. STATS INCREASED TO 93%. CONTINUED WALKING AND AT MINUTE 3 SATS WERE 86% PLACED PT ON 3L NC FOR REMAINDER OF WALK. PT ADMITTED SHE HAS HOME OXYGEN AND DIDNT WEAR IT RELIGIOUSLY AT HOME. DOES WEAR HER HOME CPAP. Initialized on 02/06/21 12:45 - END OF NOTE Interpretation Interpretation: The patient was noted to be 92% on room air at rest. However, patient desaturated to 85% within the first minute and had to be placed on 2 L nasal cannula. The patient required a total of 3 L/min nasal cannula to maintain saturations throughout the walk. In total, the patient traveled 944 feet over the course of 6 minutes with no assistive devices and 2 breaks. These findings are consistent with a respiratory limitation exercise tolerance. Recommendations Recommendations: The patient requires no supplemental oxygen at rest, but should be using 3 L nasal cannula oxygen with any exertion.
== END ==
PROVIDERS: PCP Family Medicine; Referring Provider Internal Medicine Critical Care Medicine; Visit Provider Internal Medicine Critical Care Medicine
DX: J44.9 Chronic obstructive pulmonary disease, unspecified (principal); G47.33 Obstructive sleep apnea (adult) (pediatric)
CPT/HCPCS: 94618

== ENCOUNTER 2021-06-28 12:52 | Emergency (ER) | payer MEDICAID, SELFPAY ==
[2021-06-28 12:54] VITALS: BP 150/87; PULSE 79; RESP 18; TEMP 36.6; O2SAT 94; BMI 40.7
[2021-06-28 14:01] LABS: Absolute Lymphocyte Count 3.91 X10^3/uL (0.83-4.51); Absolute Neutrophil Count 6.6 X10^3/uL (2.0-7.7); Basophil# 0.02 X10^3/uL; Basophil% 0.2 % (0-1); Eosinophil# 0.25 X10^3/uL; Eosinophils% 2.1 % (0-5); Hematocrit 39.8 % (37-47); Hemoglobin 13.4 g/dL (12.0-15.0); Lymphocyte # 3.91 X10^3/ul (0.83-4.51); Lymphocyte % 33.5 % (19-41); Mean Corp Hgb Conc 33.7 g/dL (32-36); Mean Corpuscular Hgb 29.8 pg (27.0-32.0); Mean Corpuscular Volume 88.6 fL (81-99); Mean Platelet Vol. 9.1 fl (6.2-12.0); Monocyte# 0.85 X10^3/uL; Monocyte% 7.3 % (0-10); NRBC Flagged by Analyzer 0 % (0-5); Neutrophil # 6.61 X10^3/uL (2.7-7.7); Neutrophil % 56.6 % (47-70); Platelet Count 230 K/mm3 (150-450); RBC Distribution Width CV 13.6 % (11.6-14.6); RBC Distribution Width SD 44.2 fl (35.1-43.9); Red Blood Count 4.49 M/mm3 (4.2-5.4); White Blood Count 11.7 K/mm3 (4.4-11.0)
[2021-06-28 14:13] LABS: Anion Gap 6 (5-15); BUN 15 mg/dL (7-18); BUN/Creat Ratio 18.6 RATIO (10-20); Calcium,Total 8.9 mg/dL (8.5-10.1); Chloride 107 mmol/L (98-107); Creatinine, Serum 0.81 mg/dL (0.55-1.02); EST Glomerular Filtration Rate 78 mL/min (>60); Est Glom Filt Rate - Afr Amer 94 mL/min (>60); Estimated Creatinine Clearance 62.62 ml/min; Glucose 96 mg/dL (74-106); Potassium 3.7 mmol/L (3.5-5.1); Sodium Level 141 mmol/L (136-145)
--- NOTE | 2021-06-28 14:15 | RAD_ITS ---
INDICATION: cough EXAMINATION/TECHNIQUE: X-RAY - XR Chest 1 View COMPARISON: None. FINDINGS: LIFE-SUPPORT AND LINES: 1. None HEART AND VESSELS: Cardiac silhouette is at the upper limit of normal. No evidence congestive failure. LUNGS AND PLEURAL SPACES: Subtle asymmetric markings at the RIGHT lung base, consistent with a subtle interstitial infiltrate. No consolidation, no effusion. No pulmonary mass is noted. MEDIASTINUM AND HILAR REGIONS: No masses adenopathy noted. No areas of calcification. Visualized upper airway is normal in position. BONY ELEMENTS: No acute bony changes noted. RAD/Chest 1 View (Portable) IMPRESSION: 1. Cardiac silhouette at the upper limit of normal. No congestive failure. 2. Subtle asymmetric interstitial pattern at the RIGHT lung base, early interstitial infiltrate is consideration. No consolidation, no effusion. Electronically Signed: Keon Morales MD at 14:39 EST Tel , Service support ,
--- NOTE | 2021-06-28 14:54 | EDS_ITS ---
HPI History of Present Illness Chief Complaint: Cold Sx Informant: patient Narrative Narrative: 56-year-old female presenting to the emergency room with cough. She notes headache sore throat and cough since 23 June. She had a negative Covid test. She denies any fevers. She states that she usually has problems with her sinuses this time a year but last year did not wonders if that is because she was wearing a mask. PFSH PFSH Medical History Acute bronchitis, unspecified Acute carpal tunnel syndrome Anxiety and depression Appendicitis COPD (chronic obstructive pulmonary disease) Encounter for screening for COVID-19 GERD (gastroesophageal reflux disease) Hypertension KRISTINE (obstructive sleep apnea) Smoking greater than 30 pack years Home Medications albuterol sulfate 2 puff INHALATION BID PRN 06/17/19 [History Last Taken Unknown] bupropion HCl 150 mg PO DAILY 06/17/19 [History Last Taken Unknown] esomeprazole magnesium 20 mg PO DAILY 06/17/19 [History Last Taken Unknown] fluticasone propionate 1 spray NASAL DAILY 06/17/19 [History Last Taken Unknown] multivitamin 1 ea PO DAILY 06/17/19 [History Last Taken Unknown] lisinopril-hydrochlorothiazide 2 ea PO DAILY 03/31/20 [History Last Taken Unknown] meloxicam 15 mg PO DAILY 03/31/20 [History Last Taken Unknown] metoprolol succinate 50 mg tablet,extended release 24 hr 50 mg PO DAILY 06/10/20 [History Last Taken Unknown] glycopyrrolate 9 mcg-formoterol 4.8 mcg HFA aerosol inhaler 2 puff INHALATION QAM AND QPM #1 inh 10/23/20 [Rx Last Taken Unknown] benzonatate 200 mg capsule 200 mg PO TID PRN #30 cap 06/25/21 [Rx Last Taken Unknown] Allergy/AdvReac Type Severity Reaction Status Date / Time No Known Allergies Allergy Verified 06/28/21 12:55 Family History Brother Cancer Father Cancer Surgical History Hx of appendectomy Social History Smoking Status: Current every day smoker tobacco type: cigarettes alcohol intake: current ROS ROS ED Constitutional Constitutional ED: Denies chills, fever(s) or weight loss Eyes Eyes: Denies change in vision or diplopia ENT ENT ED: Reports rhinorrhea, sore throat and other Details: Facial pain ; Denies ear pain Cardiovascular Cardiovascular: Denies chest pain, orthopnea, palpitations or racing heartbeat Respiratory/Chest Respiratory/Chest: Denies cough, dyspnea or orthopnea Gastrointestinal Gastrointestinal: Denies abdominal pain, diarrhea, nausea or vomiting Genitourinary Genitourinary ED: Denies dysuria, hematuria or urinary frequency Musculoskeletal Musculoskeletal: Denies arthralgias or myalgias Integumentary Denies abscess or rash Neurologic Neurologic: Reports headache(s); Denies weakness Psychiatric Psychiatric: Denies anxiety, depression, suicidal ideation or suicidal thoughts Endocrine Endocrinology: Denies polydipsia, polyphagia or polyuria Allergic/Immunologic Allergic/Immunologic ED: Denies mouth swelling, tongue swelling or urticaria EXAM Physical Exam Const Vital Signs: 06/28/21 12:54 06/28/21 13:09 Temperature 97.8 F Temperature Source Temporal Pulse Rate 79 Respiratory Rate 18 Respiratory Effort Short of Breath Respiratory Depth Normal Respiratory Pattern Normal Blood Pressure 150/87 H Blood Pressure Mean 108 Pulse Ox 94 Oxygen Delivery Method Room Air Room Air Positive well nourished, well developed and obese General Appearance ED: well developed Nutritional Appearance: obese HEENT Reports normocephalic, head/scalp atraumatic and moist mucous membranes HEENT Narrative: Mild facial tenderness. Turbinate edema tenderness; Negative for atraumatic Eyes PERRL and EOMs intact bilaterally Neck no lymphadenopathy, supple and no JVD Resp normal respiratory effort Auscultation: wheezes expiratory wheezes Cardio regular rate, regular rhythm and no murmurs GI normal to inspection, nondistended, normoactive bowel sounds and non-tender Palpation: soft Back/Spine no CVA tenderness, normal ROM and normal to inspection Extremity normal to inspection General Extremety ED: Negative for edema General Extremity: Negative for edema Neuro oriented x3 and CN's II-XII intact bilaterally Sensorium / Orientation: alert Motor Exam: strength 5/5 throughout Psych mental status grossly normal Mood & Affect: Negative for depressed or tearful Skin no rashes or lesions noted and no wounds Rashes: no rashes MDM MDM MDM Narrative Medical decision making narrative: My interpretation of the chest x-ray is no acute process. White count is 11.7. BMP is negative. At this point I think the patient can be discharged home. Patient be started on doxycycline and a brief course of prednisone. Of note she just quit smoking 4 months ago and does carry a diagnosis of COPD. She does have a faint expiratory wheeze but I do not believe is an acute exacerbation. I think the above treatment will help her in addition to her albuterol. Lab Data Attestation: I reviewed the patient's lab results. Labs: Laboratory Results - last 24 hr 06/28/21 06/28/21 13:53 13:53 WBC 11.7 H RBC 4.49 Hgb 13.4 Hct 39.8 MCV 88.6 MCH 29.8 MCHC 33.7 RDW Std Deviation 44.2 H RDW Coeff of Seven 13.6 Plt Count 230 MPV 9.1 Immature Gran % (Auto) 0.300 Neut % (Auto) 56.6 Lymph % (Auto) 33.5 [place] % (Auto) 7.3 Eos % (Auto) 2.1 Baso % (Auto) 0.2 Absolute Neuts (auto) 6.6 Absolute Lymphs (auto) 3.91 Nucleated RBC % 0 Sodium 141 Potassium 3.7 Chloride 107 Carbon Dioxide 28.0 Anion Gap 6 BUN 15 Creatinine 0.81 Estim Creat Clear Calc 62.62 Est GFR (MDRD) Af Amer 94 Est GFR (MDRD) Non-Af 78 BUN/Creatinine Ratio 18.6 Glucose 96 Calcium 8.9 Radiography Diagnostic Testing: Clinical Impression(s) from Imaging Studies Chest X-Ray 06/28/21 14:15 IMPRESSION: 1. Cardiac silhouette at the upper limit of normal. No congestive failure. 2. Subtle asymmetric interstitial pattern at the RIGHT lung base, early interstitial infiltrate is consideration. No consolidation, no effusion. Electronically Signed: Keon Morales MD at 14:39 EST Tel , Service support , Discharge Plan Triage Chief Complaint: Cold Sx ED Provider: Davis Alberts Dx/Rx/DC Orders Prescriptions: No Action metoprolol succinate 50 mg tablet extended release 24 hr 50 mg PO DAILY RF: 0 benzonatate 200 mg capsule 200 mg PO TID PRN (Reason: cough) Qty: 30 RF: 0 multivitamin 1 EACH tablet 1 ea PO DAILY RF: 0 bupropion HCl 150 MG tablet sustained-release 12 hr 150 mg PO DAILY RF: 0 albuterol sulfate 8.5 GM HFA aerosol inhaler 2 puff INHALATION BID PRN (Reason: Sob &/Or Wheezing) RF: 0 fluticasone propionate 1 SPRAY spray,suspension 1 spray NASAL DAILY RF: 0 esomeprazole magnesium 20 MG tablet,delayed release (DR/EC) 20 mg PO DAILY RF: 0 lisinopril-hydrochlorothiazide 1 EACH tablet 2 ea PO DAILY RF: 0 meloxicam 15 MG tablet 15 mg PO DAILY RF: 0 Bevespi Aerosphere 9-4.8 mcg HFA aerosol inhaler 2 puff INHALATION QAM AND QPM Qty: 1 RF: 3 Primary Care Provider: Tonny De La Cruz
[2021-06-28 15:07] VITALS: BP 130/80; PULSE 87; RESP 18; O2SAT 93
== END 2021-06-28 15:10 | disposition home or self-care (01) ==
PROVIDERS: Emergency Provider Emergency Medicine; PCP Family Medicine
DX: J44.9 Chronic obstructive pulmonary disease, unspecified (principal); I10 Essential (primary) hypertension; F32.A Depression, unspecified; F41.9 Anxiety disorder, unspecified; E66.9 Obesity, unspecified; Z68.41 Body mass index [BMI] 40.0-44.9, adult; Z79.899 Other long term (current) drug therapy; Z87.891 Personal history of nicotine dependence
CPT/HCPCS: 71045; 80048; 85025; 87426; 87804; 99284; A4216

== ENCOUNTER → 2022-03-24 | Outpatient (CLI) | payer MEDICAID, SELFPAY ==
[2022-03-24 11:53] VITALS: PULSE 82; PULSE 83; PULSE 89; PULSE 92; PULSE 93; PULSE 94; PULSE 95; O2SAT 86; O2SAT 87; O2SAT 89; O2SAT 90; O2SAT 91
--- NOTE | 2022-03-24 11:57 | CPS ---
PATIENT ARRIVED WITH HOME OXYGEN TANK (THROUGH [employer]). SHE WAS ON ROOM AIR 10 MINUTES PRIOR TO TESTING. RA SPO2 86% AT REST, PT PLACED ON OWN DEVICE AT 2LPM DEMAND FLOW. @5MIN SPO2 ONLY 87% AT REST. INCREASED TO 3LPM DEMAND FLOW, SPO2 90%, WALK TEST BEGAN PT FAILED 4LPM DEMAND FLOW, SWITCHED TO CONTINUOUS FLOW AT 2LPM, WHICH SHE ALSO FAILED. HER DEVICE DOES NOT HAVE 3LPM, SO SHE WAS INCREASED TO 4LPM CONTINUOUS FLOW, SPO2 MAINTAINED 90% FOR LAST 2 MINUTES OF TESTING. SHE PUSHED A WHEELCHAIR FOR STABILITY DURING TESTING. BRIEF REST BREAKS WERE TAKEN FOR INCREASED WOB/FOR O2 TANK ADJUSTMENT.
--- NOTE | 2022-03-25 10:33 | WT_ITS ---
PSN 6 Minute Walk Test 6 Minute Walk Test 6 Minute Walk Test: 6 Minute Walk Test PSN:6-Minute Walk Test Start: 03/24/22 11:53 Freq: Status: Active Protocol: [id number] Document 03/24/22 11:53 [facility] (Rec: 03/24/22 12:04 [facility] [id number]) 6 Minute Walk Test Date Performed 03/24/22 Time Performed 11:15 Height 5 ft 3 in Weight: 230 lb Weight in Pounds 230.[address]: Feliciano Licea Assistive device used: Walker Pre-test Oxygen Delivery Method Room Air Pulse Ox (%) 86 Pulse Rate (60-100 beats/min) 82 Dyspnea Iliana Scale (0-10) 4 Reported Symptoms Increased Work of Breathing 1st minute Oxygen Flow Rate (L/min) (L/min) 3 Oxygen Delivery Method Nasal Cannula Pulse Ox (%) 89 Pulse Rate (60-100 beats/min) 89 Dyspnea Iliana Scale (0-10) 5 Number of Rests Taken 1 Reported Symptoms Increased Work of Breathing 2nd minute Oxygen Flow Rate (L/min) (L/min) 3 Oxygen Delivery Method Nasal Cannula Pulse Ox (%) 87 Pulse Rate (60-100 beats/min) 92 Dyspnea Iliana Scale (0-10) 6 Number of Rests Taken 1 Reported Symptoms Increased Work of Breathing 3rd minute Oxygen Flow Rate (L/min) (L/min) 4 Oxygen Delivery Method Nasal Cannula Pulse Ox (%) 87 Pulse Rate (60-100 beats/min) 94 Dyspnea Iliana Scale (0-10) 6 Number of Rests Taken 1 Reported Symptoms Increased Work of Breathing 4th minute Oxygen Flow Rate (L/min) (L/min) 2 Oxygen Delivery Method Nasal Cannula Pulse Ox (%) 90 Pulse Rate (60-100 beats/min) 93 Dyspnea Iliana Scale (0-10) 6 Number of Rests Taken 0 Reported Symptoms Increased Work of Breathing 5th minute Oxygen Flow Rate (L/min) (L/min) 2 Oxygen Delivery Method Nasal Cannula Pulse Ox (%) 87 Pulse Rate (60-100 beats/min) 95 Dyspnea Iliana Scale (0-10) 6 Number of Rests Taken 1 Reported Symptoms Increased Work of Breathing 6th minute Oxygen Flow Rate (L/min) (L/min) 4 Oxygen Delivery Method Nasal Cannula Pulse Ox (%) 90 Pulse Rate (60-100 beats/min) 94 Dyspnea Iliana Scale (0-10) 6 Number of Rests Taken 0 Reported Symptoms Increased Work of Breathing Post-test Oxygen Flow Rate (L/min) (L/min) 2 Oxygen Delivery Method Nasal Cannula Pulse Ox (%) 91 Pulse Rate (60-100 beats/min) 83 Dyspnea Iliana Scale (0-10) 4 Reported Symptoms Increased Work of Breathing Full Laps Walked 12 Partial Lap, Number of Tiles Walked 33 Total Distance Walked (ft) 741 03/24/22 11:57 Cardiopulmonary Services by Tia Ramirez PATIENT ARRIVED WITH HOME OXYGEN TANK (THROUGH [employer]). SHE WAS ON ROOM AIR 10 MINUTES PRIOR TO TESTING. RA SPO2 86% AT REST, PT PLACED ON OWN DEVICE AT 2LPM DEMAND FLOW. @5MIN SPO2 ONLY 87% AT REST. INCREASED TO 3LPM DEMAND FLOW, SPO2 90%, WALK TEST BEGAN PT FAILED 4LPM DEMAND FLOW, SWITCHED TO CONTINUOUS FLOW AT 2LPM, WHICH SHE ALSO FAILED. HER DEVICE DOES NOT HAVE 3LPM, SO SHE WAS INCREASED TO 4LPM CONTINUOUS FLOW, SPO2 MAINTAINED 90% FOR LAST 2 MINUTES OF TESTING. SHE PUSHED A WHEELCHAIR FOR STABILITY DURING TESTING. BRIEF REST BREAKS WERE TAKEN FOR INCREASED WOB/FOR O2 TANK ADJUSTMENT. Initialized on 03/24/22 11:57 - END OF NOTE Interpretation Interpretation: The patient ambulated 741 feet over the course of 6 minutes beginning on room air with the use of a pushed wheelchair. Pretesting oxygen saturation was noted to be 86% on room air. The patient required 3 L/min of pulsed dose oxygen prior to the initiation of testing to achieve an appropriate level of oxygenation. With ambulation, the patient continued to desaturate throughout the course of testing requiring a transition from pulsed dose oxygen to continuous flow at 4 L/min to maintain oxygen saturations. Recommendations Recommendations: 3 L/min of supplemental oxygen should be utilized at rest, while 4 L/min is required with exertion.
== END | disposition home or self-care (01) ==
LOC: PSN 11:07
PROVIDERS: PCP Family Medicine; Referring Provider Internal Medicine Critical Care Medicine; Visit Provider Internal Medicine Critical Care Medicine
DX: J44.9 Chronic obstructive pulmonary disease, unspecified (principal)
CPT/HCPCS: 94618

== ENCOUNTER → 2022-04-29 | Outpatient (CLI) | payer MEDICAID, SELFPAY ==
--- NOTE | 2022-04-29 17:00 | CT_ITS ---
STUDY: LOW DOSE CT LUNG CANCER SCREENING REASON FOR EXAM: Female, 56 years old. and gt;30 pack years quit 01/2021 RADIATION DOSAGE (If Supplied By Facility): CTDIvol = ( 4.02 ) mGy, DLP = ( 129.38 ) mGycm TECHNIQUE: No contrast was administered. Low dose technique was utilized (average mAS-38 and kVp 120). 1.25 mm axial source images with a slice interval of 1.25-mm were reconstructed in lung windows. 2.5 mm axial source images with a slice interval of 2.5-mm were reconstructed in lung windows. 5.0 mm axial source images with a slice interval of 5.0-mm were reconstructed in soft tissue windows. COMPARISON: Comparison is made with prior study dated 04/03/2020. NODULES: No suspicious nodules are seen. Emphysema: Mild degree of emphysematous changes. The previously seen small right pleural effusion and right lower lobe infiltrate as resolved. Minimal linear scarring is seen at the lung bases as well as in the medial anterior aspect of the lingular segment of the left upper lobe. Endobronchial lesion: None Aorta: Unremarkable CORONARY ARTERIES: Coronary artery calcification is seen. Heart: Unremarkable Pulmonary artery: Unremarkable Mediastinal nodes: Small mediastinal lymph nodes. Other chest and abdominal findings: CT/Low Dose CT Lung Screening IMPRESSION: Lung-RADS category 2 - Continue annual screening with LDCT in 12 months. IMPORTANT NOTES FOR USE: ACR Lung-RADS Version 1.1 Assessment Categories Release Date: 2018 Category: Coded 0-4 bases on nodule(s) with highest degree of suspicion. Negative screen is defined as categories 1 and 2; a positive screen is defined as categories 3 and 4. Category 3 and 4A nodules that are unchanged on interval CT should be coded as category 2, and individuals returned to screening in 12 months. Category 4X: Category 3 or 4 nodules with additional imaging findings that increase the suspicion of lung cancer, such as spiculation, GGN that doubles in size in 1 year, enlarged lymph notes, etc. Category Modifiers: S (significant finding unrelated to lung cancer) Electronically Signed: Telly Grover MD at 9:21 EDT ,
== END | disposition home or self-care (01) ==
LOC: CT 16:50
PROVIDERS: PCP Family Medicine; Visit Provider Nurse Practitioner Acute Care
DX: Z12.2 Encounter for screening for malignant neoplasm of respiratory organs (principal); Z87.891 Personal history of nicotine dependence
CPT/HCPCS: 71271

== ENCOUNTER → 2023-05-13 | Outpatient (CLI) | payer MEDICAID, SELFPAY ==
--- NOTE | 2023-05-13 13:23 | CT_ITS ---
EXAM: CT CHEST, LUNG CANCER SCREENING WITHOUT INTRAVENOUS CONTRAST CLINICAL INDICATION: smoker TECHNIQUE: Helically acquired images were obtained of the chest without intravenous contrast using low dose (LDCT) lung cancer screening protocol. This CT exam was performed using one or more of the following dose reduction techniques: automated exposure control, adjustment of the mA and/or kV according to patient size, and/or use of iterative reconstruction technique. COMPARISON: 04/29/2022 FINDINGS: LUNGS AND PLEURAL SPACES: There are mild emphysematous changes in lung apices. No mass. No pleural effusion or thickening. No pneumothorax. HEART: Unremarkable. Heart size is normal. No pericardial effusion. No significant coronary artery calcifications. MEDIASTINUM: Unremarkable. No mediastinal or hilar adenopathy. Esophagus is unremarkable. No hiatal hernia. THYROID: Unremarkable. No thyroid lesions. BONES/JOINTS: Unremarkable. No suspicious lytic or blastic abnormality. VASCULATURE: Unremarkable. Thoracic aorta is non-dilated. LYMPH NODES: Unremarkable. No enlarged lymph nodes. CT/Low Dose CT Lung Screening IMPRESSION: No acute abnormality. Lung-RADS score: 1 - Recommend continued annual screening with a low-dose CT (LDCT) in 12 months. Electronically Signed: Massimo Brooks MD at 23:08 EDT ,
== END | disposition home or self-care (01) ==
LOC: CT 13:22
PROVIDERS: PCP Family Medicine; Referring Provider Nurse Practitioner Acute Care; Visit Provider Nurse Practitioner Acute Care
DX: F17.210 Nicotine dependence, cigarettes, uncomplicated (principal)
CPT/HCPCS: 71271

== ENCOUNTER → 2023-10-05 | Outpatient (CLI) | payer MEDICAID, SELFPAY | END | disposition home or self-care (01) | LOC: LABSPEC 15:47 | PROVIDERS: PCP Family Medicine; Referring Provider Nurse Practitioner Acute Care; Visit Provider Nurse Practitioner Acute Care | DX: R05.9 Cough, unspecified (principal) | CPT/HCPCS: 87070; 87205 ==

== ENCOUNTER → 2024-05-23 | Outpatient (CLI) | payer MEDICAID, SELFPAY ==
--- NOTE | 2024-05-23 18:43 | CT_ITS ---
STUDY: LOW DOSE CT LUNG CANCER SCREENING REASON FOR EXAM: Female, 59 years old. One pack per day smoker x40 years, quit x3 years RADIATION DOSAGE (If Supplied By Facility): CTDIvol = ( 3.02 ) mGy, DLP = ( 91.38 ) mGycm TECHNIQUE: No contrast was administered. Low dose technique was utilized (average mAS-38 and kVp 120). 1.25 mm axial source images with a slice interval of 1.25-mm were reconstructed in lung windows. 2.5 mm axial source images with a slice interval of 2.5-mm were reconstructed in lung windows. 5.0 mm axial source images with a slice interval of 5.0-mm were reconstructed in soft tissue windows. COMPARISON: 05/13/2023 FINDINGS: Lung windows show underlying emphysema with stable nonspecific pleural thickening in both hemithoraces. There is no organized infiltrate, or effusion, no suspicious noncalcified mass or nodule. Stable fibrotic scarring in the lung bases. Limited soft tissue windows show normal-appearing thyroid gland. No suspicious adenopathy. There are punctate coronary artery calcifications. The descending thoracic aorta tapers normally. Limited cuts through the upper abdomen do not show a suspicious abnormality. Bony structures show degenerative change Overall, little significant interval change since the previous study CT/Low Dose CT Lung Screening IMPRESSION: Lung-RADS category 2 - Continue annual screening with LDCT in 12 months. IMPORTANT NOTES FOR USE: ACR Lung-RADS Version 1.1 Assessment Categories Release Date: 2018 Category: Coded 0-4 bases on nodule(s) with highest degree of suspicion. Negative screen is defined as categories 1 and 2; a positive screen is defined as categories 3 and 4. Category 3 and 4A nodules that are unchanged on interval CT should be coded as category 2, and individuals returned to screening in 12 months. Category 4X: Category 3 or 4 nodules with additional imaging findings that increase the suspicion of lung cancer, such as spiculation, GGN that doubles in size in 1 year, enlarged lymph notes, etc. Category Modifiers: S (significant finding unrelated to lung cancer) Electronically Signed: Socrates Muñiz MD at 14:07 EDT ,
== END | disposition home or self-care (01) ==
LOC: CT 18:43
PROVIDERS: PCP Family Medicine; Referring Provider Nurse Practitioner Acute Care; Visit Provider Nurse Practitioner Acute Care
DX: Z12.2 Encounter for screening for malignant neoplasm of respiratory organs (principal); F17.210 Nicotine dependence, cigarettes, uncomplicated
CPT/HCPCS: 71271

== ENCOUNTER → 2024-09-07 | Outpatient (CLI) | payer MEDICAID, SELFPAY | END | disposition home or self-care (01) | LOC: SL 13:46 | PROVIDERS: PCP Family Medicine; Referring Provider Nurse Practitioner Family; Visit Provider Nurse Practitioner Family | DX: Z46.89 Encounter for fitting and adjustment of other specified devices (principal); G47.33 Obstructive sleep apnea (adult) (pediatric) | CPT/HCPCS: 98960; G0463 ==

== ENCOUNTER → 2025-01-22 | Outpatient (CLI) | payer MEDICAID, SELFPAY ==
[2025-01-22 17:28] LABS: Absolute Lymphocyte Count 4.25 X10^3/uL (0.83-4.51); Absolute Neutrophil Count 4.7 X10^3/uL (2.0-7.7); Basophil# 0.03 X10^3/uL; Basophil% 0.3 % (0-1); Eosinophil# 0.22 X10^3/uL; Eosinophils% 2.2 % (0-5); Hematocrit 46.1 % (37-47); Hemoglobin 15.1 g/dL (12.0-15.0); Lymphocyte # 4.25 X10^3/ul (0.83-4.51); Mean Corp Hgb Conc 32.8 g/dL (32-36); Mean Corpuscular Hgb 29.4 pg (27.0-32.0); Mean Corpuscular Volume 89.9 fL (81-99); Mean Platelet Vol. 9.7 fl (6.2-12.0); Monocyte# 0.93 X10^3/uL; Monocyte% 9.2 % (0-10); NRBC Flagged by Analyzer 0 % (0-5); Neutrophil # 4.68 X10^3/uL (2.7-7.7); Neutrophil % 46.1 % (47-70); POSITIVE MORPHOLOGY YES; Platelet Count 256 K/mm3 (150-450); RBC Distribution Width CV 14.4 % (11.6-14.6); RBC Distribution Width SD 47.6 fl (35.1-43.9); Red Blood Count 5.13 M/mm3 (4.2-5.4); White Blood Count 10.1 K/mm3 (4.4-11.0)
[2025-01-22 18:33] LABS: Ferritin 121 ng/mL (22-378)
[2025-01-22 19:48] LABS: Differential Indicated SCAN CRITERIA MET
[2025-01-22 19:51] LABS: Differential Comment SCANNED
== END | disposition home or self-care (01) ==
LOC: LAB 16:36
PROVIDERS: PCP Family Medicine; Referring Provider Nurse Practitioner Family; Visit Provider Nurse Practitioner Family
DX: R05.9 Cough, unspecified (principal); R06.02 Shortness of breath
CPT/HCPCS: 36415; 82728; 85025

== ENCOUNTER → 2025-06-25 | Outpatient (CLI) | payer MEDICAID, SELFPAY ==
--- NOTE | 2025-06-25 16:09 | CT_ITS ---
PROCEDURE: LOW DOSE CT LUNG SCREENING 06/25/2025 REASON FOR EXAM: SMOKING HISTORY GREATER THAN 30 PACK YEAR TECHNIQUE: Procedure Code: [id number] Modality: CT Procedure: LOW DOSE CT LUNG SCREENING Coronal and Sagittal reconstruction series were provided. One or more dose reduction techniques were used (e.g., Automated exposure control, adjustment of the mA and/or kV according to patient size, use of iterative reconstruction technique). REFERENCE LINK: [facility] Lung-RADS RADIATION DOSE SUMMARY: CTDlvol: 4.02 mGy DLP: 137.43 mGycm COMPARISON: 05/23/2024 FINDINGS: PULMONARY NODULES: (Only nodules >3mm are reported) Nodules described below are on series 2 unless otherwise specified. Pulmonary Nodules: No new suspicious pulmonary nodules. Hardware:Unremarkable Lymph Nodes:Unremarkable Heart and Vasculature:Normal heart size Coronary Artery Calcifications: Absent Lungs and Airways: Mild emphysematous changes are present. Pleura:Nonspecific pleural thickening, bilaterally, stable. Upper Abdomen:Unremarkable Bones:Unremarkable CT/Low Dose CT Lung Screening IMPRESSION: No new suspicious pulmonary nodules. Coronary artery calcification (CAC) is is absent Lung-RADS Category: 2 BENIGN (BASED ON IMAGING FEATURES OR INDOLENT BEHAVIOR). RECOMMEND 12-MONTH SCREENING LDCT. Reading Location: [id number]
== END | disposition home or self-care (01) ==
LOC: CT 16:06
PROVIDERS: PCP Family Medicine; Referring Provider Nurse Practitioner Family; Visit Provider Nurse Practitioner Family
DX: Z12.2 Encounter for screening for malignant neoplasm of respiratory organs (principal); F17.210 Nicotine dependence, cigarettes, uncomplicated
CPT/HCPCS: 71271